=== PATIENT | male | born 1960 | race African-American/Black ===

== ENCOUNTER 2017-11-06 11:39 | Inpatient (IN) | payer OTHER ==
[~2017-11-06] VITALS: Ht 182.9 cm; Wt 100.0 kg
[2017-11-06] VITALS (12 sets, daily range): BP systolic 108–139; BP diastolic 54–79; PULSE 54–100; RESP 12–24; TEMP 97.6–98.2; O2SAT 97–100
[~2017-11-06 11:39] MED LIST: ASPI81TA11 PO; BISA5TAB5 PO; CHOL50006 PO; CLOP75TA PO; CRES20TA PO; CYCL1PAK PO; EMPA1TAB3 PO; ERGO50000 PO; GABA300C3 PO; GLIP10TA6 PO; HYDR-3129 PO; INSU1INJ14 SQ; LOSA25 PO; METO25 PO; NOVOINJ3 SQ; TRAD5TAB PO; VITA100020 PO
[2017-11-06] MEDS ORDERED: PANTOPRAZOLE SODIUM 40 MG VIAL IV PUSH ONE (12:00)
[2017-11-06] MEDS ORDERED: SODIUM CHLORIDE 0.9% FLUSH 10 ML FLUSH IVF PRN (12:00)
--- NOTE | 2017-11-06 12:40 | RADRPT ---
EXAM DATE: 11/06/2017 12:29 PM EDT AGE/SEX: 57 years / Male INDICATIONS: Chest pain. CLINICAL DATA: This is the patient's initial encounter. Patient reports that signs and symptoms have been present for 1 day and indicates a pain score of 6/10. MEDICAL/SURGICAL HISTORY: None. None. COMPARISON: No prior exams available for comparison. FINDINGS: A single AP view of the chest demonstrates the lungs to be symmetrically aerated without evidence of mass, infiltrate or effusion. The cardiomediastinal contours are unremarkable. Osseous structures a re intact. CONCLUSION: Negative for an acute process Electronically signed by: Taj Khalil MD 11/06/2017 12:38 PM EDT
--- NOTE | 2017-11-06 13:46 | PD ---
Physical Exam Narrative I, Dr. Cobb, have reviewed the advance practice practitioner's documentation and am in agreement, met with the patient face to face, made the diagnosis, and the medical decision making was done by me. *My assessment and Findings: See mid-level provider note for full history and physical and disposition. Patient presents to the emergency department complaining of chest pain that started last night. Pain is described as being diffuse and he is without pain now. Is also reporting bloody stools that started on Monday morning. As well as nausea but no vomiting, chills but no fever, and diarrhea. Patient placed on the alarm security or surveillance monitor, IV access obtained , and labs/EKG/chest x-ray/CT ordered. He was also given IV Protonix. Data Data Last Documented VS Vital Signs Date Time Temp Pulse Resp B/P (MAP) Pulse Ox O2 Delivery O2 Flow Rate FiO2 11/06/17 12:45 97 Room Air 11/06/17 11:50 97.6 92 24 108/54 (72) Orders Orders Electrocardiogram (11/06/17 11:57) Ckmb (Isoenzyme) Profile (11/06/17 11:57) Complete Blood Count With Diff (11/06/17 11:57) Comprehensive Metabolic Panel (11/06/17 11:57) Magnesium (Mg) (11/06/17 11:57) Prothrombin Time / Inr (Pt) (11/06/17 11:57) Act Partial Throm Time (Ptt) (11/06/17 11:57) Troponin I (11/06/17 11:57) Lipase (11/06/17 11:57) Chest, Single Ap (11/06/17 11:57) Ecg Monitoring (11/06/17 11:57) Bilateral Bp Monitoring (11/06/17 11:57) Iv Access Insert/Monitor (11/06/17 11:57) Oximetry (11/06/17 11:57) Oxygen Administration (11/06/17 11:57) Sodium Chloride 0.9% Flush (Ns Flush) (11/06/17 12:00) Pantoprazole Inj (Protonix Inj) (11/06/17 12:00) Type And Screen (11/06/17 12:19) Sodium Chlor 0.9% 1000 Ml Inj (Ns 1000 M (11/06/17 14:00) Pantoprazole Inj (Protonix Inj) (11/06/17 14:00) Red Blood Cells (Rbc) (11/06/17 14:13) Blood Product Administration (11/06/17 14:13) Sodium Chlor 0.9% 250 Ml Inj (Ns 250 Ml (11/06/17 14:15) Morphine Inj (Morphine Inj) (11/06/17 14:30) Metoclopramide Inj (Reglan Inj) (11/06/17 14:30) Ct Abd/Pel W/O Iv Contrast (11/06/17 ) Calcium Gluconate Inj (Calcium Gluconate (11/06/17 14:30) Insulin Human Regular Inj (Novolin R Inj (11/06/17 14:30) Dextrose 50% In Marcel (Vial) Inj (D50w (Vi (11/06/17 14:30) Albuterol Concentrated Neb (Albuterol Co (11/06/17 14:30) Admit To Inpatient (11/06/17 ) Code Status (11/06/17 15:15) Vital Signs (Adult) LYNN.QSHIFT (11/06/17 15:15) Intake + Output LYNN.QSHIFT (11/06/17 15:15) Sodium Chloride 0.9% Flush (Ns Flush) (11/06/17 15:15) Sodium Chloride 0.9% Flush (Ns Flush) (11/06/17 21:00) Pantoprazole Inj (Protonix Inj) (11/07/17 09:00) Hgb & Hct (11/06/17 15:15) Hgb & Hct (11/06/17 21:15) Hgb & Hct (11/07/17 03:15) Hgb & Hct (11/07/17 09:15) Hgb & Hct (11/07/17 15:15) Hgb & Hct (11/07/17 21:15) Hgb & Hct (11/08/17 03:15) Hgb & Hct (11/08/17 09:15) Hgb & Hct (11/08/17 15:15) Hgb & Hct (11/08/17 21:15) Basic Metabolic Panel (Bmp) (11/07/17 06:00) Electrocardiogram (11/06/17 ) Sliver Cutter / Telemetry LYNN.Q8H (11/06/17 15:15) Scd Bilateral/Knee High LYNN.BID (11/06/17 15:15) Inpatient Certification (11/06/17 ) Sodium Chlor 0.45% 1000 Ml Inj (1/2 Ns 1 (11/06/17 15:15) Activity Oob With Assistance (11/06/17 15:15) ^Bedside Commode (11/06/17 15:15) Admit Order (Ed Use Only) (11/06/17 15:20) Insulin Aspart Supplemtl Scale (Novolog (11/06/17 17:00) Ondansetron Odt (Zofran Odt) (11/06/17 15:15) Labs Laboratory Tests Test 11/06/17 13:52 White Blood Count 4.8 TH/MM3 Red Blood Count 2.68 MIL/MM3 Hemoglobin 6.2 GM/DL Hematocrit 19.6 % Mean Corpuscular Volume 73.2 FL Mean Corpuscular Hemoglobin 23.2 PG Mean Corpuscular Hemoglobin Concent 31.7 % Red Cell Distribution Width 19.5 % Platelet Count 192 TH/MM3 Mean Platelet Volume 7.9 FL Neutrophils (%) (Auto) 66.7 % Lymphocytes (%) (Auto) 17.6 % Monocytes (%) (Auto) 12.3 % Eosinophils (%) (Auto) 2.7 % Basophils (%) (Auto) 0.7 % Neutrophils # (Auto) 3.2 TH/MM3 Lymphocytes # (Auto) 0.8 TH/MM3 Monocytes # (Auto) 0.6 TH/MM3 Eosinophils # (Auto) 0.1 TH/MM3 Basophils # (Auto) 0.0 TH/MM3 CBC Comment DIFF FINAL Differential Comment Prothrombin Time 9.7 SEC Prothromb Time International Ratio 1.0 RATIO Activated Partial Thromboplast Time 20.4 SEC Blood Urea Nitrogen 47 MG/DL Creatinine 2.44 MG/DL Random Glucose 198 MG/DL Total Protein 6.1 GM/DL Albumin 3.1 GM/DL Calcium Level 8.0 MG/DL Magnesium Level 2.3 MG/DL Alkaline Phosphatase 66 U/L Aspartate Amino Transf (AST/SGOT) 13 U/L Alanine Aminotransferase (ALT/SGPT) 17 U/L Total Bilirubin 0.2 MG/DL Sodium Level 138 MEQ/L Potassium Level 6.6 MEQ/L Chloride Level 110 MEQ/L Carbon Dioxide Level 19.2 MEQ/L Anion Gap 9 MEQ/L Estimat Glomerular Filtration Rate 33 ML/MIN Total Creatine Kinase 82 U/L Troponin I LESS THAN 0.02 NG/ML Lipase 256 U/L [facility] Supervised Visit with ROGERIO: Yes Interpretation(s) ECG: Sinus rhythm, rate 98, no ST elevation or depression Labs: Low hemoglobin and hematocrit, elevated potassium/creatinine/BUN/glucose Last Impressions Chest X-Ray 11/06/17 1157 Signed Impressions: CONCLUSION: Negative for an acute process Narrative Course Patient was given Protonix in the ER as well as 2 units of blood for transfusion. He was also given 1 L IV normal saline and hyperkalemia was treated with 1 g of calcium gluconate, 10 mg albuterol neb, and I am of D50 and 10 units of regular insulin IV. He was admitted to the hospital for further evaluation and management. Diagnosis Primary Impression: Hyperkalemia Additional Impressions: [id number] kidney injury Qualified Codes: N17.9 - Acute kidney failure, unspecified; N18.3 - Chronic kidney disease, stage 3 (moderate) Chest pain Qualified Codes: R07.9 - Chest pain, unspecified Symptomatic anemia GI bleed Qualified Codes: K92.2 - Gastrointestinal hemorrhage, unspecified Admitting Information Admitting Physician Requests: Admit Condition: Stable Henrietta Cobb MD Nov 06, 2017 13:46
[2017-11-06 13:59] LABS: ALBUMIN 3.1 GM/DL (3.4-5.0); ALKALINE PHOSPHATASE 66 U/L (45-117); ALT (GPT) 17 U/L (12-78); AST (GOT) 13 U/L (15-37); BICARBONATE 19.2 MEQ/L (21.0-32.0); BLOOD UREA NITROGEN 47 MG/DL (7-18); CHLORIDE 110 MEQ/L (98-107); CREATININE 2.44 MG/DL (0.60-1.30); GLOMERULAR FILTRATION RATE 33 ML/MIN (>89); GLUCOSE,RANDOM 198 MG/DL (74-106); MAGNESIUM 2.3 MG/DL (1.5-2.5); SODIUM (NA) 138 MEQ/L (136-145); TOTAL BILIRUBIN ADULT 0.2 MG/DL (0.2-1.0); TOTAL PROTEIN 6.1 GM/DL (6.4-8.2); TROPONIN I LESS THAN 0.02 NG/ML (0.02-0.05)
[2017-11-06] MEDS ORDERED: PANTOPRAZOLE INJ 80 MG in SODIUM CHLORIDE 0.9% INJ 100 ML IV SCH ×2 (14:00→15:30)
[2017-11-06] MEDS ORDERED: SODIUM CHLOR 0.9% 1000 ML INJ 1,000 ML IV ONE (14:00)
--- NOTE | 2017-11-06 14:00 | PD ---
HPI Chief Complaint: Chest Pain Time Seen by Provider: 11:57 Travel History International Travel<30 days: No Contact w/Intl Traveler<30days: No Traveled to known affect area: No History of Present Illness HPI 57-year-old male that presents to the ED for evaluation of mid chest pain as well as nausea and weakness as well as rectal bleeding. Per patient he has had bowel movements with blood for the past 2 days. Per patient has been feeling weak and having the chest pain for the past 2 days as well but the chest pain does become more severe yesterday. He states that he had a colonoscopy 2 weeks ago. Per patient he was told that he had some internal hemorrhoids as well as some polyps but was told that otherwise he was okay. She has never had the bleeding before. He states that he had a colonoscopy just as a routine test. Patient denies any abdominal pain. States that whenever he has the stool is just liquid with blood. He states that for the most part he feels weak and tired. Chest pain is 7 out of 10 and feels like a pressure. Does not radiate. States in the mid chest. No history of ulcers. Has never had an EGD. No urinary issues. No fevers chills or sweats. No cough or runny nose. No history of asthma or COPD. He does have a history of CABG in the past as well as hypertension and cholesterol issues and diabetes. PFSH Past Medical History Hx Anticoagulant Therapy: Yes Asthma: Yes ( CHILD) Autoimmune Disease: No Heart Rhythm Problems: No Cancer: No Cardiac Catheterization: Yes Cardiovascular Problems: Yes High Cholesterol: Yes Chemotherapy: No Chest Pain: Yes Congestive Heart Failure: No COPD: No Coronary Artery Disease: Yes Diabetes: Yes Patient Takes Glucophage: No (glipide) Diminished Hearing: No Endocrine: Yes Gastrointestinal Disorders: Yes (RECTAL CYST) GERD: No Glaucoma: No Genitourinary: No Hepatitis: No Hiatal Hernia: No Hypertension: Yes Immune Disorder: No Musculoskeletal: Yes (undiagnosed back problems) Neurologic: Yes Psychiatric: No Reproductive: No Respiratory: No Integumentary: Yes Migraines: Yes Myocardial Infarction: No Radiation Therapy: No Sleep Apnea: No Thyroid Disease: No Ulcer: No Past Surgical History Cardiac Surgery: Yes (OPEN HEART 2008) Cholecystectomy: Yes Coronary Artery Bypass Graft: Yes (SIX VESSELS) Oral Surgery: Yes Thoracic Surgery: Yes (STERNUM REMOVAL) Other Surgery: Yes (GALLBLADDER- 2004) Family History Family Myocardial Infarction: No Social History Alcohol Use: Yes (WEEKLY) Tobacco Use: No (FORMER SMOKER) Substance Use: No Allergies-Medications (Allergen,Severity, Reaction): Uncoded Allergies: MERTHIALATE (Allergy, Intermediate, UNKNOWN, 06/08/11) Reported Meds & Prescriptions Reported Meds & Active Scripts Active Losartan Potassium 25 MG (Losartan Potassium) 25 Mg Tab 25 Mg PO DAILY Crestor (Rosuvastatin Calcium) 20 Mg Tab 20 Mg PO DAILY Reported Gabapentin 300 Mg Cap 300 Mg PO BID Vitamin D / Drisdol 50,000 Units (Ergocalciferol) 50,000 Units Cap 1 Cap PO Q7D Vitamin D (Cholecalciferol) 5,000 Unit Tab 5,000 Unit PO DAILY Vitamin B-12 (Cyanocobalamin) 1,000 Mcg Tab 1,000 Mcg PO DAILY Tresiba Flextouch (Insulin Degludec) 100 Unit/Ml Inj 21 SQ HS Tradjenta (Linagliptin) 5 Mg Tab 5 Mg PO DAILY [place] 10-325 mg (Hydrocodone-Acetaminophen 10-325 mg) 1 Tab 1 Tab PO Q12HR PRN Clopidogrel (Clopidogrel Bisulfate) 75 Mg Tab 75 Mg PO DAILY Cyclobenzaprine HCl 10 Mg Tab 10 Mg PO BID Jardiance (Empagliflozin) 25 Mg Tab 25 Mg PO DAILY Novolog Flexpen (Insulin Aspart) Flexpen Inj 20 SQ TID Glipizide 10 Mg Tab 10 Mg PO BID TAKE BEFORE MEALS Dulcolax (Bisacodyl) 5 Mg Tabec 5 Mg PO ONCE Aspirin EC 81 mg (Aspirin) 81 Mg Tab 81 Mg PO DAILY Metoprolol Tartrate 25 mg (Metoprolol Tartrate) 25 Mg Tab 1 Tab PO DAILY Review of Systems Except as stated in HPI: all other systems reviewed are Neg Physical Exam Narrative GENERAL: SKIN: Warm and dry. HEAD: Atraumatic. Normocephalic. EYES: Pupils equal and round. No scleral icterus. No injection or drainage. ENT: No nasal bleeding or discharge. Mucous membranes pink and moist. Tongue is midline. No uvula deviation. NECK: Trachea midline. No JVD. CARDIOVASCULAR: Regular rate and rhythm. No murmurs, S3, S4. RESPIRATORY: No accessory muscle use. Clear to auscultation. Breath sounds equal bilaterally. GASTROINTESTINAL: Abdomen soft, non-tender, nondistended. Hepatic and splenic margins not palpable. Rectal exam: done with female nurse present show what appears to be rectal bleeding. Some mild stool noted. Some masses noted on the inside of the rectum but obvious hemorrhoids noted on the external area. MUSCULOSKELETAL: Extremities without clubbing, cyanosis, or edema. No obvious deformities. Full range of motion of the upper and lower extremities bilaterally. 2+ pulses bilaterally. NEUROLOGICAL: Awake and alert. No obvious cranial nerve deficits. Motor grossly within normal limits. Five out of 5 muscle strength in the arms and legs. Normal speech. PSYCHIATRIC: Appropriate mood and affect; insight and judgment normal. Data Data Last Documented VS Vital Signs Date Time Temp Pulse Resp B/P (MAP) Pulse Ox O2 Delivery O2 Flow Rate FiO2 11/06/17 12:45 97 Room Air 11/06/17 11:50 97.6 92 24 108/54 (72) Orders Orders Electrocardiogram (11/06/17 11:57) Ckmb (Isoenzyme) Profile (11/06/17 11:57) Complete Blood Count With Diff (11/06/17 11:57) Comprehensive Metabolic Panel (11/06/17 11:57) Magnesium (Mg) (11/06/17 11:57) Prothrombin Time / Inr (Pt) (11/06/17 11:57) Act Partial Throm Time (Ptt) (11/06/17 11:57) Troponin I (11/06/17 11:57) Lipase (11/06/17 11:57) Chest, Single Ap (11/06/17 11:57) Ecg Monitoring (11/06/17 11:57) Bilateral Bp Monitoring (11/06/17 11:57) Iv Access Insert/Monitor (11/06/17 11:57) Oximetry (11/06/17 11:57) Oxygen Administration (11/06/17 11:57) Sodium Chloride 0.9% Flush (Ns Flush) (11/06/17 12:00) Pantoprazole Inj (Protonix Inj) (11/06/17 12:00) Type And Screen (11/06/17 12:19) Sodium Chlor 0.9% 1000 Ml Inj (Ns 1000 M (11/06/17 14:00) Pantoprazole Inj (Protonix Inj) (11/06/17 14:00) Red Blood Cells (Rbc) (11/06/17 14:13) Blood Product Administration (11/06/17 14:13) Sodium Chlor 0.9% 250 Ml Inj (Ns 250 Ml (11/06/17 14:15) Morphine Inj (Morphine Inj) (11/06/17 14:30) Metoclopramide Inj (Reglan Inj) (11/06/17 14:30) Ct Abd/Pel W/O Iv Contrast (11/06/17 ) Calcium Gluconate Inj (Calcium Gluconate (11/06/17 14:30) Insulin Human Regular Inj (Novolin R Inj (11/06/17 14:30) Dextrose 50% In Marcel (Vial) Inj (D50w (Vi (11/06/17 14:30) Albuterol Concentrated Neb (Albuterol Co (11/06/17 14:30) Admit To Inpatient (11/06/17 ) Code Status (11/06/17 15:15) Vital Signs (Adult) LYNN.QSHIFT (11/06/17 15:15) Intake + Output LYNN.QSHIFT (11/06/17 15:15) Diet Npo (11/06/17 Dinner) Sodium Chloride 0.9% Flush (Ns Flush) (11/06/17 15:15) Sodium Chloride 0.9% Flush (Ns Flush) (11/06/17 21:00) Pantoprazole Inj (Protonix Inj) (11/07/17 09:00) Hgb & Hct (11/06/17 15:15) Hgb & Hct (11/06/17 21:15) Hgb & Hct (11/07/17 03:15) Hgb & Hct (11/07/17 09:15) Hgb & Hct (11/07/17 15:15) Hgb & Hct (11/07/17 21:15) Hgb & Hct (11/08/17 03:15) Hgb & Hct (11/08/17 09:15) Hgb & Hct (11/08/17 15:15) Hgb & Hct (11/08/17 21:15) Basic Metabolic Panel (Bmp) (11/07/17 06:00) Electrocardiogram (11/06/17 ) Spooling Operator / Telemetry LYNN.Q8H (11/06/17 15:15) Scd Bilateral/Knee High LYNN.BID (11/06/17 15:15) Inpatient Certification (11/06/17 ) Sodium Chlor 0.45% 1000 Ml Inj (1/2 Ns 1 (11/06/17 15:15) Activity Oob With Assistance (11/06/17 15:15) ^Bedside Commode (11/06/17 15:15) Admit Order (Ed Use Only) (11/06/17 15:20) Insulin Aspart Supplemtl Scale (Novolog (11/06/17 17:00) Ondansetron Odt (Zofran Odt) (11/06/17 15:15) Pantoprazole Inj (Protonix Inj) (11/06/17 15:30) Labs Laboratory Tests Test 11/06/17 13:52 White Blood Count 4.8 TH/MM3 Red Blood Count 2.68 MIL/MM3 Hemoglobin 6.2 GM/DL Hematocrit 19.6 % Mean Corpuscular Volume 73.2 FL Mean Corpuscular Hemoglobin 23.2 PG Mean Corpuscular Hemoglobin Concent 31.7 % Red Cell Distribution Width 19.5 % Platelet Count 192 TH/MM3 Mean Platelet Volume 7.9 FL Neutrophils (%) (Auto) 66.7 % Lymphocytes (%) (Auto) 17.6 % Monocytes (%) (Auto) 12.3 % Eosinophils (%) (Auto) 2.7 % Basophils (%) (Auto) 0.7 % Neutrophils # (Auto) 3.2 TH/MM3 Lymphocytes # (Auto) 0.8 TH/MM3 Monocytes # (Auto) 0.6 TH/MM3 Eosinophils # (Auto) 0.1 TH/MM3 Basophils # (Auto) 0.0 TH/MM3 CBC Comment DIFF FINAL Differential Comment Prothrombin Time 9.7 SEC Prothromb Time International Ratio 1.0 RATIO Activated Partial Thromboplast Time 20.4 SEC Blood Urea Nitrogen 47 MG/DL Creatinine 2.44 MG/DL Random Glucose 198 MG/DL Total Protein 6.1 GM/DL Albumin 3.1 GM/DL Calcium Level 8.0 MG/DL Magnesium Level 2.3 MG/DL Alkaline Phosphatase 66 U/L Aspartate Amino Transf (AST/SGOT) 13 U/L Alanine Aminotransferase (ALT/SGPT) 17 U/L Total Bilirubin 0.2 MG/DL Sodium Level 138 MEQ/L Potassium Level 6.6 MEQ/L Chloride Level 110 MEQ/L Carbon Dioxide Level 19.2 MEQ/L Anion Gap 9 MEQ/L Estimat Glomerular Filtration Rate 33 ML/MIN Total Creatine Kinase 82 U/L Troponin I LESS THAN 0.02 NG/ML Lipase 256 U/L MDM Medical Decision Making Medical Screen Exam Complete: Yes Emergency Medical Condition: Yes Medical Record Reviewed: Yes Interpretation(s) CBC & BMP Diagram 11/06/17 13:52 Total Protein 6.1 L, Albumin 3.1 L, Calcium Level 8.0 L, Magnesium Level 2.3, Alkaline Phosphatase 66, Aspartate Amino Transf (AST/SGOT) 13 L, Alanine Aminotransferase (ALT/SGPT) 17, Total Bilirubin 0.2 Last Impressions Chest X-Ray 11/06/17 1157 Signed Impressions: CONCLUSION: Negative for an acute process troponin and CKMB WNL EKG shows sinus rhythm with no sign of acute ischemia or arrhythmia. More specifically no sign of Peak T waves. Differential Diagnosis Rectal bleeding versus GI bleed versus CAD versus chest pain versus bleeding Narrative Course 57-year-old male that presents to the ED for evaluation of bleeding. Patient was properly examined and was found to have signs and symptoms of possible GI bleed. Labs and imaging order. Patient also complains of chest pain. Cardiac workup started as well. Patient was not given aspirin because of possible GI bleed. Patient does take Plavix but has not taken it since yesterday. Labs and imaging order. Patient was started on Protonix. Labs and imaging showed what appears to be abnormal hemoglobin, hyperkalemia as well as acute kidney injury. Patient's started on albuterol, calcium, and insulin with D50 as per my attending's Dr Cobb recommendations. No EKG abnormalities noted. Chest pain and weakness likely secondary to acute bleeding and GI bleed. Case discussed with Dr. Alcaraz for [facility] who agrees to admission. I spoke over the phone with Dr. Nair who will evaluate the patient while admitted. HemaPrompt Point of Care Internal Pos. & Neg. Controls: Passed Fecal Specimen Occult Blood: Positive Diagnosis Primary Impression: GI bleed Qualified Codes: K92.2 - Gastrointestinal hemorrhage, unspecified Additional Impressions: Symptomatic anemia [id number] kidney injury Qualified Codes: N17.9 - Acute kidney failure, unspecified; N18.9 - Chronic kidney disease, unspecified Hyperkalemia Chest pain Qualified Codes: R07.9 - Chest pain, unspecified Admitting Information Admitting Physician Requests: Admit Giuseppe Thompson Nov 06, 2017 13:59
[2017-11-06 14:06] LABS: AUTOMATED NEUTROPHIL # 3.2 TH/MM3 (1.8-7.7); BASOPHIL % 0.7 % (0.0-2.0); EOSINOPHIL # 0.1 TH/MM3 (0-0.4); EOSINOPHIL % 2.7 % (0.0-4.0); LYMPH % 17.6 % (9.0-44.0); LYMPHOCYTE # 0.8 TH/MM3 (1.0-4.8); MEAN CELL VOLUME 73.2 FL (80.0-100.0); MEAN CORPUSCULAR HEMOGLOBIN 23.2 PG (27.0-34.0); MEAN CORPUSCULAR HGB CONC 31.7 % (32.0-36.0); MEAN PLATELET VOLUME 7.9 FL (7.0-11.0); MONO % 12.3 % (0.0-8.0); MONOCYTE # 0.6 TH/MM3 (0-0.9); NEUT % 66.7 % (16.0-70.0); PLATELET COUNT 192 TH/MM3 (150-450); RED BLOOD COUNT 2.68 MIL/MM3 (4.50-5.90); RED CELL DISTRIBUTION WIDTH 19.5 % (11.6-17.2); WHITE BLOOD COUNT 4.8 TH/MM3 (4.0-11.0)
[2017-11-06 14:14] LABS: HEMATOCRIT 19.6 % (39.0-51.0); HEMOGLOBIN 6.2 GM/DL (13.0-17.0)
[2017-11-06] MEDS ORDERED: SODIUM CHLOR 0.9% 250 ML INJ 250 ML IV ONE (14:15)
[2017-11-06 14:24] LABS: PROTHROMBIN TIME - PATIENT 9.7 SEC (9.8-11.6)
[2017-11-06] MEDS ORDERED: RESP: ALBUTEROL CONC 2.5 MG/0.5 ML NEB INH ONE (14:30)
[2017-11-06] MEDS ORDERED: METOCLOPRAMIDE HCL 10 MG/2 ML VIAL IV PUSH ONE (14:30)
[2017-11-06] MEDS ORDERED: INSULIN HUMAN REGULAR 1,000 UNITS/10 ML VIAL IV PUSH ONE (14:30)
[2017-11-06] MEDS ORDERED: CALCIUM GLUCONATE 10% 1 GM/10 ML VIAL SLOW IVP ONE (14:30)
[2017-11-06] MEDS ORDERED: DEXTROSE 50% IN WATER 50 ML VIAL(D50) IV PUSH ONE (14:30)
[2017-11-06] MEDS ORDERED: MORPHINE SULFATE 4 MG/ML INJ IV PUSH ONE (14:30)
[2017-11-06] MEDS ORDERED: SODIUM CHLORIDE 0.9% FLUSH 10 ML FLUSH IV FLUSH PRN (15:15)
[2017-11-06] MEDS ORDERED: ONDANSETRON ODT 4 MG TAB PO PRN (15:15)
--- NOTE | 2017-11-06 15:18 | PD.CONS ---
HPI History of Present Illness This is a 57 year old M with PMH significant for CKD, DM, PAD S/P LLE revascularization, CAD, HTN, and hyperlipidemia who presented to the ER today with complaints of weakness, feeling light headed, and dizziness. Pt reports rectal bleeding for the past two days, states stools are liquids and black and dark maroon in color. Multiple episodes yesterday, only one episode so far today. Associated LUQ abdominal pain, intermittent, described as a burning sensation. Denies any noticeable aggravating or alleviating factors. Also reports some nausea since Monday but denies emesis. Denies acid reflux, heartburn. Of note, pt is on Plavix but has not had any since Monday because he needs his prescription refilled. Also takes a daily baby ASA. Pt denies NSAID use. Drinks a few beers every other days. has never had EGD. Recent colonoscopy done by our service outpatient on October 23 --> Two semi- pedunculated polyps ranging from 7-12 mm in size were found in the ascending colon and proximal transverse colon, polypectomy using snare cautery. Colon mucosa was otherwise normal. Internal hemorrhoids. Pathology revealed polyps were tubular adenomas. Pt was advised to repeat procedure in one year. Pt denies any family history significant for colon cancer. (Nanette Burciaga) PFSH Past Medical History CKD DM PAD S/P LLE revascularization CAD HTN Hyperlipidemia Colon polyps- tubular adenoma Vitamin D deficiency Vitamin B12 deficiency Lung cancer S/O chemo and radiation in 2007 CAD S/P CABG in 2008 Past Surgical History Cholecystectomy Removal of sternum due to MRSA Colonoscopy Toe amputation (Nanette Burciaga) Uncoded Allergies: MERTHIALATE (Allergy, Intermediate, UNKNOWN, 06/08/11) Social History ETOH- a few beers every other day (Nanette Burciaga) Review of Systems Gastrointestinal: COMPLAINS OF: Abdominal pain, Black stools, Bloody stools, Diarrhea, Nausea, DENIES: Constipation, Vomiting, Difficulty Swallowing, Anorexia, Odynophagia, Swelling of Abdomen, Heartburn, Hematemesis (Nanette Burciaga) GI Exam Vitals I&O Vital Signs Date Time Temp Pulse Resp B/P (MAP) Pulse Ox O2 Delivery O2 Flow Rate FiO2 11/06/17 12:45 97 Room Air 11/06/17 12:45 97 Room Air 6/18/18 12:45 97 11/06/17 11:50 97.6 92 24 108/54 (87) 100 Imaging Last Impressions Chest X-Ray 11/06/17 1157 Signed Impressions: CONCLUSION: Negative for an acute process Laboratory Test 11/06/17 13:52 White Blood Count 4.8 TH/MM3 Red Blood Count 2.68 MIL/MM3 Hemoglobin 6.2 GM/DL Hematocrit 19.6 % Mean Corpuscular Volume 73.2 FL Mean Corpuscular Hemoglobin 23.2 PG Mean Corpuscular Hemoglobin Concent 31.7 % Red Cell Distribution Width 19.5 % Platelet Count 192 TH/MM3 Mean Platelet Volume 7.9 FL Neutrophils (%) (Auto) 66.7 % Lymphocytes (%) (Auto) 17.6 % Monocytes (%) (Auto) 12.3 % Eosinophils (%) (Auto) 2.7 % Basophils (%) (Auto) 0.7 % Neutrophils # (Auto) 3.2 TH/MM3 Lymphocytes # (Auto) 0.8 TH/MM3 Monocytes # (Auto) 0.6 TH/MM3 Eosinophils # (Auto) 0.1 TH/MM3 Basophils # (Auto) 0.0 TH/MM3 CBC Comment DIFF FINAL Differential Comment Prothrombin Time 9.7 SEC Prothromb Time International Ratio 1.0 RATIO Activated Partial Thromboplast Time 20.4 SEC Blood Urea Nitrogen 47 MG/DL Creatinine 2.44 MG/DL Random Glucose 198 MG/DL Total Protein 6.1 GM/DL Albumin 3.1 GM/DL Calcium Level 8.0 MG/DL Magnesium Level 2.3 MG/DL Alkaline Phosphatase 66 U/L Aspartate Amino Transf (AST/SGOT) 13 U/L Alanine Aminotransferase (ALT/SGPT) 17 U/L Total Bilirubin 0.2 MG/DL Sodium Level 138 MEQ/L Potassium Level 6.6 MEQ/L Chloride Level 110 MEQ/L Carbon Dioxide Level 19.2 MEQ/L Anion Gap 9 MEQ/L Estimat Glomerular Filtration Rate 33 ML/MIN Total Creatine Kinase 82 U/L Troponin I LESS THAN 0.02 NG/ML Lipase 256 U/L Physical Examination HEENT: Normocephalic; atraumatic CHEST: Even/unlabored CARDIAC: RRR ABDOMEN: Soft, nondistended, LUQ tenderness, bowel sounds active EXTREMITIES: No clubbing, cyanosis, or edema. SKIN: Normal; no rash; no jaundice. HISTOLOGY MANAGER: Alert and oriented times three. (Nanette Burciaga) Assessment and Plan Plan Assessment: - Rectal bleeding with severe anemia- H/H 6.2/19.6 on admission Reports of maroon and black colored stools since Monday, multiple episodes yesterday, only one episode of stool so far today. Associated LUQ pain and tenderness. Reports of nausea, denies emesis. Recent colonoscopy (October 23) --> Two semi-pedunculated polyps ranging from 7-12 mm in size were found in the ascending colon and proximal transverse colon, polypectomy using snare cautery. Colon mucosa was otherwise normal. Internal hemorrhoids. Pathology revealed polyps were tubular adenomas. Has never had EGD Of note, on Plavix, has not had any since Monday because Rx ran out. Also on daily baby ASA Reports a few beers, every other day. Denies NSAIDs - VIPIN on CKD with hyperkalemia- Pt has seen nephrology in the past- not on dialysis Plan: EGD and colonoscopy tomorrow Obtain consent Clear liquids today Golytely prep NPO after MN Potassium correction per attending Monitor H/H 4 U PRBCs ordered Protonix gtt Further recommendations based on clinical course and results of above Pt has been seen and examined by myself and Dr. Nair and this note is written on his behalf (Nanette Burciaga) Physician Comments seen and examined with GERARDO, egd/colonoscopy planned. Correct hyperkalemia. Transfuse as needed to keep HB > 8.0. IV protonix. Monitor labs. Bleeding sacn if active bleeding tonight. Discussed with pt. and family at the bedside. Thank you (Cosme Nair MD) Nanette Burciaga Nov 06, 2017 15:18 oCsme Nair MD Nov 06, 2017 16:34
[2017-11-06] MEDS ORDERED: INSU1INJ14 SQ (15:35)
[2017-11-06] MEDS ORDERED: TRAD5TAB PO (15:35)
[2017-11-06] MEDS ORDERED: METO25TA3 PO (15:35)
[2017-11-06] MEDS ORDERED: PLAV75TA29 PO (15:39)
[2017-11-06] MEDS ORDERED: NOVOINJ3 SQ (15:39)
[2017-11-06] MEDS ORDERED: EMPA1TAB3 PO (15:39)
[2017-11-06] MEDS ORDERED: GABA300C5 PO (15:39)
[2017-11-06] MEDS ORDERED: DULC5TAB PO (15:39)
[2017-11-06] MEDS ORDERED: HYDR-3366 PO (15:39)
[2017-11-06] MEDS ORDERED: ASPI-516 CHEW (15:39)
[2017-11-06] MEDS ORDERED: ROSU20 PO (15:39)
[2017-11-06] MEDS ORDERED: VITA500012 PO (15:39)
[2017-11-06] MEDS ORDERED: GLIP10TA6 PO (15:39)
[2017-11-06] MEDS ORDERED: DEXTROSE 50% IN WATER 50 ML VIAL(D50) IV PUSH PRN (16:00)
[2017-11-06] MEDS ORDERED: PEG (High)/E-LYTE SOLN 4000 ML BTL PO ONE (16:00)
[2017-11-06] MEDS ORDERED: GLUCAGON 1 MG/ML VIAL OTHER PRN (16:00)
--- NOTE | 2017-11-06 16:17 | HHI.HP ---
HPI Service [facility] Hospitalists Primary Care Physician Ananda Ledezma MD Admission Diagnosis acute GI bleed, hyperkalemia, VIPIN, chest pain Chief Complaint: Rectal bleeding, weakness Travel History International Travel<30 Days: No Contact w/Intl Traveler <30 Da: No Traveled to Known Affected Are: No History of Present Illness Mr. Oneill is a 57 y/o male with CKD stage 3, DM, PAD S/P LLE revascularization, CAD, HTN, and hyperlipidemia who presented to the ED on 11/06/17 with complaints of weakness, lightheadedness, and dizziness that began today. Pt reported that he has been having liquid black and dark maroon in color stools for the last 2 days. He had multiple episodes yesterday, only one episode so far today. Pt reports associated LUQ abdominal pain, intermittently and some nausea for the last 2-3 days. He also reported some chest pain with exertion and at rest on the left side of the chest which had been continuous since yesterday. He had some associated SOB increased dizziness and lightheadedness today. He denies any vomiting or acid reflux. Pt had a recent outpt colonoscopy on 10/23/[address] Marsh which revealed two semi-pedunculated polyps ranging from 7-12 mm in size which were found in the ascending colon and proximal transverse colon, polypectomy was performed using snare cautery, and internal hemorrhoids. Pathology revealed the polyps were tubular adenomas. Pt is normally on Plavix and ASA but has not taken the Plavix since Monday because he needs his prescription refilled. Pt denies NSAID use. His labs at admission noted a significant drop in his H/H to 6.2/19.6. His BMP revealed Cr 2.44/BUN 47, GFR 33 , K+ 6.6. Cardiac enzymes are negative. CT Abd/pelvis is pending. Review of Systems Constitutional: COMPLAINS OF: Fatigue, Dizziness, DENIES: Diaphoretic episodes Respiratory: COMPLAINS OF: Shortness of breath Cardiovascular: COMPLAINS OF: Chest pain Gastrointestinal: COMPLAINS OF: Abdominal pain, Black stools, Bloody stools, Diarrhea, Nausea, Reflux, DENIES: Vomiting Past Family Social History Past Medical History CKD, stage 3, baseline Cr between 2-2.3, GFR between 34-41 Diabetes mellitus, type 2, poorly controlled with Hgb A1C 12.1% in 05/2017 PAD S/P LLE revascularization CAD S/P CABG x 6 in 2008 Hx of MRSA mediastinitis s/p bypass surgery HTN GERD Hyperlipidemia Colon polyps- tubular adenoma Vitamin D deficiency Vitamin B12 deficiency Past Surgical History Cholecystectomy CABG x 6 on 12/03/[address] Hoskins Several surgeries related to MRSA mediastinitis including I&Ds, wound vac, chest tube placement and removal and plastics closure with bilateral pectoralis major and bilateral rectus abdominis muscle flaps Colonoscopy Left hallux amputation in 2015 LLE revascularization in 2016 Reported Medications -Aspirin 81 Mg CHEW DAILY -Plavix 75 Mg PO DAILY -Crestor 20 Mg PO DAILY -Gabapentin 300 Mg PO TID -Glipizide 10 Mg PO BIDAC -Culdesac 10-325 Mg Tab 1 Tab PO Q4H PRN -Metoprolol Tartrate 25 Mg PO DAILY Ergocalciferol 50,000 Units PO Q7D Dulcolax DR (Bisacodyl) 5 Mg Tabdr 5 Mg PO DAILY PRN --Novolog Flexpen Inj 300 Unit/3 Ml Pen 20 Units SQ TID --Tresiba Flextouch Pen Inj 50 Units HS --Tanzeum 30Mg SQ Weekly ?Losartan 25Mg PO BID ?HCTZ 12.5Mg PO DAILY Tradjenta (Linagliptin) 5 Mg Tab 5 Mg PO DAILY - stopped in 09/2017 Jardiance (Empagliflozin) 25 Mg Tab 25 Mg PO DAILY - stopped 09/2017 Allergies: Uncoded Allergies: MERTHIALATE (Allergy, Intermediate, UNKNOWN, 06/08/11) Family History Noncontributory Social History Drinks about 2-3 beers every other day Former smoker, smoked from age [age], smoked about 2-3 cigarettes per day Denies any illicit drug use 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 SKIN: No rashes, ecchymoses or lesions. Cool and dry. HEENT: Atraumatic. Normocephalic. No temporal or scalp tenderness. No scleral icterus. Airway patent. NECK: Trachea midline, supple, nontender. CARDIO: Regular. RESP: CTA bilaterally. No wheezes, rales, or rhonchi. ABD: +BS, soft, LUQ tenderness, nondistended. EXT: Extremities without clubbing, cyanosis, or edema. NEURO: Awake and alert. Motor and sensory grossly within normal limits. Normal speech. Laboratory Laboratory Tests Test 11/06/17 13:52 White Blood Count 4.8 Red Blood Count 2.68 Hemoglobin 6.2 Hematocrit 19.6 Mean Corpuscular Volume 73.2 Mean Corpuscular Hemoglobin 23.2 Mean Corpuscular Hemoglobin Concent 31.7 Red Cell Distribution Width 19.5 Platelet Count 192 Mean Platelet Volume 7.9 Neutrophils (%) (Auto) 66.7 Lymphocytes (%) (Auto) 17.6 Monocytes (%) (Auto) 12.3 Eosinophils (%) (Auto) 2.7 Basophils (%) (Auto) 0.7 Neutrophils # (Auto) 3.2 Lymphocytes # (Auto) 0.8 Monocytes # (Auto) 0.6 Eosinophils # (Auto) 0.1 Basophils # (Auto) 0.0 CBC Comment DIFF FINAL Differential Comment Prothrombin Time 9.7 Prothromb Time International Ratio 1.0 Activated Partial Thromboplast Time 20.4 Blood Urea Nitrogen 47 Creatinine 2.44 Random Glucose 198 Total Protein 6.1 Albumin 3.1 Calcium Level 8.0 Magnesium Level 2.3 Alkaline Phosphatase 66 Aspartate Amino Transf (AST/SGOT) 13 Alanine Aminotransferase (ALT/SGPT) 17 Total Bilirubin 0.2 Sodium Level 138 Potassium Level 6.6 Chloride Level 110 Carbon Dioxide Level 19.2 Anion Gap 9 Estimat Glomerular Filtration Rate 33 Total Creatine Kinase 82 Troponin I LESS THAN 0.02 Lipase 256 Result Diagram: 11/06/17 1352 11/06/17 1352 Imaging Last Impressions Chest X-Ray 11/06/17 1157 Signed Impressions: CONCLUSION: Negative for an acute process Caprini VTE Risk Assessment Caprini VTE Risk Assessment: Mod/High Risk (score >= 2) Caprini Risk Assessment Model Point Value = 1 Point Value = 2 Point Value = 3 Point Value = 5 Age 41-60 Minor surgery BMI > 25 kg/m2 Swollen legs Varicose veins or History of unexplained or recurrent spontaneous Oral contraceptives or hormone replacement Sepsis (< 1 month) Serious lung disease, including pneumonia (< 1 month) Abnormal pulmonary function Acute myocardial infarction Congestive heart failure (< 1 month) History of inflammatory bowel disease Medical patient at bed rest Age 61-74 Arthroscopic surgery Major open surgery (> 45 min) Laparoscopic surgery (> 45 min) Malignancy Confined to bed (> 72 hours) Immobilizing plaster cast Central venous access Age >= 75 History of VTE Family history of VTE Factor V Leiden Prothrombin [id number] Lupus anticoagulant Anticardiolipin antibodies Elevated serum homocysteine Heparin-induced thrombocytopenia Other congenital or acquired thrombophilia Stroke (< 1 month) Elective arthroplasty Hip, pelvis, or leg fracture Acute spinal cord injury (< 1 month) Prophylaxis Regimen Total Risk Factor Score Risk Level Prophylaxis Regimen 0-1 Low Early ambulation 2 Moderate Order ONE of the following: *Sequential Compression Device (SCD) *Heparin 5000 units SQ BID 3-4 Higher Order ONE of the following medications: *Heparin 5000 units SQ TID *Enoxaparin/Lovenox 40 mg SQ daily (WT < 150 kg, CrCl > 30 mL/min) *Enoxaparin/Lovenox 30 mg SQ daily (WT < 150 kg, CrCl > 10-29 mL/min) *Enoxaparin/Lovenox 30 mg SQ BID (WT < 150 kg, CrCl > 30 mL/min) AND/OR *Sequential Compression Device (SCD) 5 or more Highest Order ONE of the following medications: *Heparin 5000 units SQ TID (Preferred with Epidurals) *Enoxaparin/Lovenox 40 mg SQ daily (WT < 150 kg, CrCl > 30 mL/min) *Enoxaparin/Lovenox 30 mg SQ daily (WT < 150 kg, CrCl > 10-29 mL/min) *Enoxaparin/Lovenox 30 mg SQ BID (WT < 150 kg, CrCl > 30 mL/min) AND *Sequential Compression Device (SCD) Assessment and Plan Problem List: (1) Symptomatic anemia ICD Codes: D64.9 - Anemia, unspecified Status: Acute Plan: Symptomatic Anemia KATRIN Lama Pt is a 57 y/o male with CKD stage 3-4, DM, PAD S/P LLE revascularization, CAD , HTN, and hyperlipidemia who presented to the ED on 11/06/17 with complaints of weakness, lightheadedness, and dizziness that began today. - Pt reported that he has been having liquid black and dark maroon in color stools for the last 2 days. He had multiple episodes yesterday, only one episode so far today. Pt has had some associated LUQ abdominal pain and some nausea for the last 2-3 days. - He had a recent outpt colonoscopy on 10/23/[address] Marsh which revealed two semi-pedunculated polyps ranging from 7-12 mm in size which were found in the ascending colon and proximal transverse colon, polypectomy was performed using snare cautery, and internal hemorrhoids. Pathology revealed the polyps were tubular adenomas. - Pt is normally on Plavix and ASA but has not taken the Plavix in 5 days. Pt denies NSAID use. - His labs at admission noted a significant drop in his H/H to 6.2/19.6. - Pt is being transfused with 2 units of PRBCs and 2 more units of hold - GI is consulted - No previous evaluation with EGD - Pt was started on a Protonix gtt in the ED - CT Abd/pelvis ordered in the ED and is pending. - Give IVF - Liquid diet this evening and NPO after MN - Monitor H/H closely - Supportive care - DVT prophylaxis with SCDs (2) GI bleed ICD Codes: K92.2 - Gastrointestinal hemorrhage, unspecified Status: Acute Plan: - See above (3) Chest pain ICD Codes: R07.9 - Chest pain Status: Acute Plan: - Pt with chest pain today, which may be related to his acute anemia but given his hx of CAD we will trend out his CE and EKGs - Consult Cardiology - Monitor clinical status with the blood transfusions (4) Siawa-yi-ubrqbjz kidney injury ICD Codes: N17.9 - Tprlk-br-rcdwrry kidney injury; N18.9 - Chronic kidney disease, unspecified Status: Acute Plan: Acute on chronic kidney disease, stage 3 Hyperkalemia - His BMP at admission revealed Cr 2.44/BUN 47, GFR 33, K+ 6.6 - Review of outpt records noted baseline Cr between 2-2.3 and GFR 34-41 - Give IVF and Calcium gluconate - Repeat K+ level this evening and in AM - Repeat BMP in AM - Clear liquid diet (5) Hyperkalemia ICD Codes: E87.5 - Hyperkalemia Status: Acute Plan: - See above (6) DM (diabetes mellitus) ICD Codes: E11.9 - DM (diabetes mellitus) Status: Chronic Plan: - Pt follows with Dr. Zelaya as an outpt - His home regimen includes: Novolog Flexpen 20 Units SQ TID, Tresiba Flextouch Pen Inj 50 Units HS, Tanzeum 30Mg SQ Weekly, and Glipizide 10 Mg PO BIDAC - Pt had been on Tradjenta and Jardiance but these were stopped in 09/2017 - NovoLog Medium dose SSI - Accu checks - Pt is on clear liquids for now, monitor blood glucose closely, he may need basal insulin added (7) HTN (hypertension) ICD Codes: I10 - HTN (hypertension) Status: Chronic Plan: - BP in the ED is low - Hole home meds for now - Monitor (8) CAD (coronary artery disease) ICD Codes: I25.10 - CAD (coronary artery disease) Status: Chronic Plan: - Pt with hx of CAD s/p CABG x 6 in 2008 - Pt also with hx of PAD s/p LLE revascularization in 2015 - He was on BB, Crestor, ASA/Plavix - Cont. statin - BB on hold for low BP - ASA/Plavix on hold for GIB Physician Certification 2 Midnight Certification Type: Admission for Inpatient Services Order for Inpatient Services The services are ordered in accordance with Medicare regulations or non- Medicare payer requirements, as applicable. In the case of services not specified as inpatient-only, they are appropriately provided as inpatient services in accordance with the 2-midnight benchmark. Estimated LOS (days): 3 3 days is the estimated time the patient will need to remain in the hospital, assuming treatment plan goals are met and no additional complications. Post-Hospital Plan: Not yet determined Problem Qualifiers (1) GI bleed: Qualified Codes: K92.2 - Gastrointestinal hemorrhage, unspecified (2) Chest pain: Qualified Codes: R07.9 - Chest pain, unspecified (3) Kwiwn-vt-osxvrvp kidney injury: Qualified Codes: N17.9 - Acute kidney failure, unspecified; N18.3 - Chronic kidney disease, stage 3 (moderate) (4) DM (diabetes mellitus): Karime Ji Nov 06, 2017 16:17
--- NOTE | 2017-11-06 16:22 | RADRPT ---
EXAM DATE: 11/06/2017 3:22 PM EDT AGE/SEX: 57 years / Male INDICATIONS: Blood in stool and left lower abdomen pain for two days. CLINICAL DATA: This is the patient's initial encounter. Patient reports that signs and symptoms have been present for 1 day and indicates a pain score of 7/10. MEDICAL/SURGICAL HISTORY: Diabetes. Hypertension. Cholecystectomy. RADIATION DOSE: 8.83 CTDI (mGy) COMPARISON: No prior exams available for comparison. TECHNIQUE: Multiple contiguous axial images were obtained through the abdomen. Images were obtained using multiple row detector helical technique. Using dose reduction techniques, radiation dose was ke pt as low as reasonably achievable to obtain optimal diagnostic quality images. FINDINGS: The lower lungs are clear. There is no pericardial effusion 3.9 cm mass right lobe of the liver. Surgical clips gallbladder fossa Spleen and pancreas unremarkable Adrenal glands appear normal Right and left kidneys are unremarkable. The ascending, transverse and descending colon are remarkable for scattered diverticuli. In the pelvis multiple diverticuli are noted. There is no ascites or adenopathy. Moderate vascular calcifications are noted. CONCLUSION: 1. 3.9 similar mass right lobe of the liver suspicious for primary or secondary neoplasm of the live r. This would be amenable to pancreas biopsy 2. Site of primary is not identified. Electronically signed by: Taj Khalil MD 11/06/2017 4:20 PM EDT
[2017-11-06] MEDS: INSULIN ASPART SUPPLEMENTAL SCALE SQ SCH ×2 (17:00→21:00)
[2017-11-06 22:02] LABS: HEMATOCRIT 27.8 % (39.0-51.0); HEMOGLOBIN 9.1 GM/DL (13.0-17.0)
[2017-11-06 22:33] LABS: CARCINOEMBRYONIC ANTIGEN 2.6 NG/ML (0.2-5.0)
[2017-11-06] MEDS: SODIUM CHLORIDE 0.9% FLUSH 10 ML FLUSH IV FLUSH SCH (22:52)
[2017-11-06 23:10] LABS: CA 19-9 2.6 U/ML (0.0-35.0)
[2017-11-06 23:40] LABS: TROPONIN I LESS THAN 0.02 NG/ML (0.02-0.05)
[2017-11-07] VITALS (10 sets, daily range): BP systolic 130–162; BP diastolic 65–85; PULSE 73–93; RESP 16–18; TEMP 97.5–98.6; O2SAT 98–100
[2017-11-07] MEDS: SODIUM CHLOR 0.45% 1000 ML INJ 1,000 ML IV SCH ×3 (03:10→17:42)
[2017-11-07] MEDS ORDERED: CHLORHEXIDINE GLUCONATE 2 % 1 PACK (2 CLOTHS) TOPICAL PRN (03:45)
[2017-11-07] MEDS ORDERED: POVIDONE IODINE 5% (ANTISEPSIS KIT) 4 APPLICATIONS EACH NARE PRN (03:45)
[2017-11-07] MEDS ORDERED: SODIUM CHLORID 0.9% 500 ML IV PRN (03:45)
[2017-11-07] MEDS ORDERED: LACTATED RINGER'S 1000 ML IV PRN (03:45)
--- NOTE | 2017-11-07 07:57 | PD.CONS ---
HPI Service cardiology Consult Requested By Reason for Consult chest pain Primary Care Physician Ananda Ledezma MD History of Present Illness 57 yo AAM with CAD, CABG x 6 in 2008 (HENSON-LAD, SVG-RCA, SVG-post lat obtuse, SVG-RI, SVG-diag, SVG-diag2), PAD s/p LLE revascularization and great toe amputation, CKD stage 3, DM, and HTN who presents with dizziness, fatigue and chest discomfort x 3 days. He reports feeling gradual onset weakness and fatigue with L-sided chest discomfort described as a mild "pulling " sensation, felt with and without exertion. This discomfort does not feel like prior cardiac events. He also reports dark, tarry stools x several days with nausea. He recently had a colonoscopy with findings of 2 polyps otherwise unremarkable. Labs in the ED reveal Hgb 6.2, K+ 6, creat 2.4, troponins x 2 negative. PRBCs administered overnight; with resolution of chest pain. EKG does not show concerning ST segment or T wave changes. Currently resting comfortably without chest pain. EGD/colonoscopy planned for today. (Vanessa Angelo) Review of Systems Consitutional: COMPLAINS OF: Fatigue, DENIES: Fever, Chills, Weight gain, Weight loss Respiratory: COMPLAINS OF: See HPI, DENIES: Cough, Snoring, Shortness of breath , Wheezing, Sputum production Cardiovascular: COMPLAINS OF: See HPI, Chest pain, DENIES: Palpitations, Syncope, Tachycardia Gastrointestinal: COMPLAINS OF: Nausea, Change in bowel habits, Bloody stools, Melena, DENIES: Vomiting, Reflux (Vanessa Angelo) Past Family Social History Allergies: Uncoded Allergies: MERTHIALATE (Allergy, Intermediate, UNKNOWN, 06/08/11) Past Medical History CKD, stage 3, baseline Cr between 2-2.3, GFR between 34-41 Diabetes mellitus, type 2, poorly controlled with Hgb A1C 12.1% in 05/2017 PAD S/P LLE revascularization CAD S/P CABG x 6 in 2008 Hx of MRSA mediastinitis s/p bypass surgery HTN GERD Hyperlipidemia Colon polyps- tubular adenoma Vitamin D deficiency Vitamin B12 deficiency Past Surgical History Cholecystectomy CABG x 6 on 12/03/[address] Hoskins Several surgeries related to MRSA mediastinitis including I&Ds, wound vac, chest tube placement and removal and plastics closure with bilateral pectoralis major and bilateral rectus abdominis muscle flaps Colonoscopy Left hallux amputation in 2016 LLE revascularization in 2016 Reported Medications Reported Meds & Active Scripts Active Reported Dulcolax DR (Bisacodyl) 5 Mg Tabdr 5 Mg PO DAILY PRN Aspirin 81 Mg Chew 81 Mg CHEW DAILY Plavix (Clopidogrel Bisulfate) 75 Mg Tab 75 Mg PO DAILY Crestor (Rosuvastatin Calcium) 20 Mg Tab 20 Mg PO DAILY Jardiance (Empagliflozin) 25 Mg Tab 25 Mg PO DAILY Ergocalciferol 50,000 Unit Cap 50,000 Units PO Q7D Gabapentin 300 Mg Cap 300 Mg PO TID Glipizide 10 Mg Tab 10 Mg PO BIDAC Take 30 minutes before a meal [place] (Hydrocodone-Acetaminophen) 10-325 Mg Tab 1 Tab PO Q4H PRN Novolog Flexpen Inj (Insulin Aspart) 300 Unit/3 Ml Pen 1 Units SQ Tresiba Flextouch Pen Inj (Insulin Degludec Inj) 300 unit/3 ML Pen 1 Units SQ TID Tradjenta (Linagliptin) 5 Mg Tab 5 Mg PO DAILY Metoprolol Tartrate 25 Mg Tab 25 Mg PO DAILY Active Ordered Medications Current Medications Medications (Trade) Dose Ordered Sig/Christina Route Start Time Stop Time Status Last Admin (NS Flush) 2 ml UNSCH PRN IV FLUSH 11/06/17 15:15 (NS Flush) 2 ml BID IV FLUSH 11/06/17 21:00 11/06/17 22:52 (Zofran Odt) 4 mg Q6H PRN PO 11/06/17 15:15 (Protonix Inj) 40 mg DAILY IV PUSH 11/07/17 09:00 Sodium Chloride 1,000 ml @ 84 mls/hr [id number] IV 11/06/17 15:15 11/07/17 03:25 (NovoLOG SUPPLEMENTAL SCALE) 1 ACHS SLIDING SCALE SQ 11/06/17 17:00 Pantoprazole Sodium 80 mg/ Sodium Chloride 100 ml @ 10 mls/hr CONTINUOUS IV 11/06/17 15:30 11/07/17 08:00 (D50w (Vial) Inj) 50 ml UNSCH PRN IV PUSH 11/06/17 16:00 (Glucagon Inj) 1 mg UNSCH PRN OTHER 11/06/17 16:00 (Neurontin) 300 mg TID PO 11/07/17 09:00 (Lopressor) 25 mg DAILY PO 11/07/17 09:00 (Lipitor) 40 mg DAILY PO 11/07/17 09:00 Lactated Ringer's 1,000 ml @ 30 mls/hr Q24H PRN IV 11/07/17 03:45 11/10/17 03:44 Sodium Chloride 500 ml @ 30 mls/hr [id number] PRN IV 11/07/17 03:45 11/10/17 03:44 (Betadine 5% Antisepsis Kit) 1 applic HEALTH SERVICE COORDINATOR PRN EACH NARE 11/07/17 03:45 11/10/17 03:44 (Chlorhexidine 2% Cloth) 3 pack HEALTH SERVICE COORDINATOR PRN TOPICAL 11/07/17 03:45 11/10/17 03:44 Family History Past Medical History CKD, stage 3, baseline Cr between 2-2.3, GFR between 34-41 Diabetes mellitus, type 2, poorly controlled with Hgb A1C 12.1% in 05/2017 PAD S/P LLE revascularization CAD S/P CABG x 6 in 2008 Hx of MRSA mediastinitis s/p bypass surgery HTN GERD Hyperlipidemia Colon polyps- tubular adenoma Vitamin D deficiency Vitamin B12 deficiency Past Surgical History Cholecystectomy Noncontributory Social History Past Medical History CKD, stage 3, baseline Cr between 2-2.3, GFR between 34-41 Diabetes mellitus, type 2, poorly controlled with Hgb A1C 12.1% in 05/2017 PAD S/P LLE revascularization CAD S/P CABG x 6 in 2008 Hx of MRSA mediastinitis s/p bypass surgery HTN Drinks about 2-3 beers every other day Former smoker, smoked from age [age], smoked about 2-3 cigarettes per day Denies any illicit drug use 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 [employer] (Vanessa Angelo) Physical Exam Vital Signs Vital Signs Date Time Temp Pulse Resp B/P (MAP) Pulse Ox O2 Delivery O2 Flow Rate FiO2 11/07/17 05:32 98.3 87 18 130/65 (86) 99 11/07/17 04:00 88 11/07/17 01:00 92 11/07/17 00:54 98.2 93 17 144/84 (104) 100 11/06/17 23:45 97.6 90 16 136/78 100 11/06/17 22:58 97.6 90 15 122/69 100 11/06/17 20:46 11/06/17 20:24 98.2 91 16 133/79 (97) 100 11/06/17 19:41 97.8 91 14 138/73 (94) 100 Room Air 11/06/17 19:40 97.8 54 14 138/73 100 11/06/17 17:41 98.2 96 127/73 (91) 100 Room Air 11/06/17 17:33 98.2 100 19 139/76 11/06/17 17:18 98.2 94 139/76 (97) 100 11/06/17 15:58 97 20 139/76 (97) 11/06/17 15:50 98.2 98 12 133/76 100 11/06/17 12:45 97 Room Air 11/06/17 12:45 97 Room Air 11/06/17 12:45 97 11/06/17 11:50 97.6 92 24 108/54 (72) 100 Physical Exam GENERAL: SKIN: Warm and dry. HEAD: Atraumatic. Normocephalic. EYES: Pupils equal and round. No scleral icterus. No injection or drainage. ENT: No nasal bleeding or discharge. NECK: Trachea midline. No JVD. CARDIOVASCULAR: Regular rate and rhythm. no murmurs RESPIRATORY: No accessory muscle use. Clear to auscultation. GASTROINTESTINAL: Abdomen soft, non-tender, nondistended. MUSCULOSKELETAL: Extremities without clubbing, cyanosis, or edema. L great toe amputation NEUROLOGICAL: Awake and alert. No obvious cranial nerve deficits. Normal speech. PSYCHIATRIC: Appropriate mood and affect; insight and judgment normal. Laboratory Laboratory Tests Test 11/06/17 13:52 11/06/17 21:49 White Blood Count 4.8 Red Blood Count 2.68 Hemoglobin 6.2 9.1 Hematocrit 19.6 27.8 Mean Corpuscular Volume 73.2 Mean Corpuscular Hemoglobin 23.2 Mean Corpuscular Hemoglobin Concent 31.7 Red Cell Distribution Width 19.5 Platelet Count 192 Mean Platelet Volume 7.9 Neutrophils (%) (Auto) 66.7 Lymphocytes (%) (Auto) 17.6 Monocytes (%) (Auto) 12.3 Eosinophils (%) (Auto) 2.7 Basophils (%) (Auto) 0.7 Neutrophils # (Auto) 3.2 Lymphocytes # (Auto) 0.8 Monocytes # (Auto) 0.6 Eosinophils # (Auto) 0.1 Basophils # (Auto) 0.0 CBC Comment DIFF FINAL Differential Comment Prothrombin Time 9.7 Prothromb Time International Ratio 1.0 Activated Partial Thromboplast Time 20.4 Blood Urea Nitrogen 47 Creatinine 2.44 Random Glucose 198 Total Protein 6.1 Albumin 3.1 Calcium Level 8.0 Magnesium Level 2.3 Alkaline Phosphatase 66 Aspartate Amino Transf (AST/SGOT) 13 Alanine Aminotransferase (ALT/SGPT) 17 Total Bilirubin 0.2 Sodium Level 138 Potassium Level 6.6 4.9 Chloride Level 110 Carbon Dioxide Level 19.2 Anion Gap 9 Estimat Glomerular Filtration Rate 33 Total Creatine Kinase 82 72 Troponin I LESS THAN 0.02 LESS THAN 0.02 Lipase 256 Tumor Marker Alpha Fetoprotein 4.0 Carcinoembryonic Antigen 2.6 CA 19-9 Antigen 2.6 (Vanessa Angelo) Result Diagram: 11/06/17214811/06/17 2149 Imaging Last 48 hours Impressions Chest X-Ray 11/06/17 1157 Signed Impressions: CONCLUSION: Negative for an acute process Abdomen/Pelvis CT 11/06/17 0000 Signed Impressions: CONCLUSION: 1. 3.9 similar mass right lobe of the liver suspicious for primary or secondar y neoplasm of the liver. This would be amenable to pancreas biopsy 2. Site of primary is not identified. (Vanessa Angelo) Assessment and Plan Problem List: (1) CAD (coronary artery disease) ICD Codes: I25.10 - CAD (coronary artery disease) Status: Chronic (2) HTN (hypertension) ICD Codes: I10 - HTN (hypertension) Status: Chronic (3) Chest pain ICD Codes: R07.9 - Chest pain Status: Acute Assessment and Plan 57 yo AAM with CAD, CABG x 6 in 2008 (HENSON-LAD, SVG-RCA, SVG-post lat obtuse, SVG-RI, SVG-diag, SVG-diag2), PAD s/p LLE revascularization and great toe amputation, CKD stage 3, DM, and HTN who presents with dizziness, fatigue and chest discomfort x 3 days. He reports feeling gradual onset weakness and fatigue with L-sided chest discomfort described as a mild "pulling " sensation, felt with and without exertion. This discomfort does not feel like prior cardiac events. He also reports dark, tarry stools x several days with nausea. He recently had a colonoscopy with findings of 2 polyps otherwise unremarkable. Labs in the ED reveal Hgb 6.2, K+ 6, creat 2.4, troponins x 2 negative. PRBCs administered overnight; with resolution of chest pain. He reports compliance with Plavix and asa, but did run out of Plavix 5 days ago. atypical chest pain- troponin x 2 negative, EKG nonischemic will monitor troponin trend. continue medical management consider ischemic workup if necessary once Hgb improves >10 symptomatic anemia- s/p PRBC, EGD/cscope planned for today acute on chronic CKD- improving s/p IVF liver mass 3.9cm seen on CT (Vanessa Angelo) Assessment and Plan Patient with 2-3 days of bloody stools and chest pain over same duration, which resolved last night. Found with Hgb 6.2 today. Scheduled for colonoscopy/endoscopy today. VIPIN on CKD with hyperkalemia, suspect from hypoperfusion from anemia Angina Pectoris due to symptomatic anemia. Rec: Treat GIB, transfuse PRBCs for Hgb>10. Continue metoprolol tartrate 25mg bid. Hold antiplatelets therapy (patient ran out of plavix on 11/02) GI to comment after EGD/Colonoscopy today when patient may resume antiplatelet therapy ( ASA or Plavix) (Bryant Tillman DO) Problem Qualifiers (1) Chest pain: Qualified Codes: R07.9 - Chest pain, unspecified Vanessa Angelo Nov 07, 2017 07:57 Bryant Tillman DO Nov 07, 2017 08:24
[2017-11-07] MEDS: INSULIN ASPART SUPPLEMENTAL SCALE SQ SCH ×4 (08:00→21:29)
[2017-11-07] MEDS: ATORVASTATIN 40 MG TAB PO SCH (08:47)
[2017-11-07] MEDS: PANTOPRAZOLE SODIUM 40 MG VIAL IV PUSH SCH (08:47)
[2017-11-07] MEDS: METOPROLOL TARTRATE 25 MG TAB PO SCH ×2 (08:47→21:17)
[2017-11-07] MEDS: GABAPENTIN 300 MG CAP PO SCH ×3 (08:47→17:41)
[2017-11-07] MEDS ORDERED: METOPROLOL TARTRATE 25 MG TAB PO SCH (09:00)
[2017-11-07] MEDS: SODIUM CHLORIDE 0.9% FLUSH 10 ML FLUSH IV FLUSH SCH ×2 (09:00→21:17)
--- NOTE | 2017-11-07 10:11 | GIPROC ---
[facility] [address] [facility]. [facility], [address] EGD PROCEDURE REPORT EXAM DATE: 11/07/2017 PATIENT NAME: Jorje Oneill MR #: [id number] BIRTHDATE: 1960 ATTENDING: Cosme Nair MD ORDER #: [id number] CORPORATE DEVELOPMENT INTERN: Glory Jane and Phyllis Will STATUS: inpatient INDICATIONS: The patient is a 57 yr old male here for an EGD due to iron deficiency anemia PROCEDURE PERFORMED: EGD w/ biopsy MEDICATIONS: None and Per Anesthesia. TOPICAL ANESTHETIC: CONSENT: The patient understands the risks and benefits of the procedure and understands that these risks include, but are not limited to: sedation, allergic reaction, infection, perforation and/or bleeding. Alternative means of evaluation and treatment include, among others: physical exam, x-rays, and/or surgical intervention. The patient elects to proceed with this endoscopic procedure. medical equipment was checked for proper function. Hand hygiene and appropriate measures for infection prevention was taken. After the risks, benefits and alternatives of the procedure were thoroughly explained, Informed consent was verified, confirmed and timeout was successfully executed by the treatment team. The patient was anesthetized with topical anesthesia and the EC-[id number] (Pedi C) endoscope was introduced through the mouth and advanced to the second portion of the duodenum. Retroflexed views revealed no abnormalities The gastroscope was then slowly withdrawn and removed. ESOPHAGUS: The mucosa of the esophagus appeared normal. STOMACH: There was moderate gastritis in the gastric antrum. A biopsy was performed using cold forceps. Sample sent for histology. DUODENUM: The duodenal mucosa appeared normal in the 2nd part of the duodenum. ADVERSE EVENTS: There were no complications. IMPRESSIONS: 1. The esophagus appeared normal 2. There was gastritis in the gastric antrum; biopsy was performed 3. Normal duodenal mucosa in the 2nd part of the duodenum 4. Retroflexed views revealed no abnormalities RECOMMENDATIONS: 1. Await biopsy results. Biopsy results will not be ready for 7-10 days. If you don't hear from us in two weeks, call our office for biopsy results. 2. Anti-reflux regimen 3. Continue PPI PATIENT CONDITION: stable DISPOSITION: Inpatient REPEAT EXAM: Return 1 year EGD pending biopsy results Cosme Nair MD eSigned: Cosme Nair MD 11/07/2017 10:11 AM cc: Ananda Ledezma M.D. PATIENT NAME: OneillJorje MR#: [id number]
--- NOTE | 2017-11-07 10:24 | GIPROC ---
[facility] [address] [facility]. [facility], [address] COLONOSCOPY PROCEDURE REPORT EXAM DATE: 11/07/2017 PATIENT NAME: Jorje Oneill MR #: [id number] BIRTHDATE: 1960 ENDOSCOPIST: Cosme Nair MD ORDER #: [id number] FUEL DOCK ATTENDANT: Glory Jane and Phyllis Will STATUS: inpatient INDICATIONS: The patient is a 57 yr old male here for a colonoscopy due to anemia, non-specific and hematochezia PROCEDURE PERFORMED: Colonoscopy with biopsy MEDICATIONS: None and Per Anesthesia. PREP QUALITY: The [place] Bowel Prep Score was Right colon 2, Mid colon 2, and Left colon 2. Total = 6. PREP TYPE:GoLytely ESTIMATED BLOOD LOSS: None CONSENT: The patient understands the risks and benefits of the procedure and understands that these risks include, but are not limited to: sedation, allergic reaction, infection, perforation and/or bleeding. Alternative means of evaluation and treatment include, among others: physical exam, x-rays, and/or surgical intervention. The patient elects to proceed with this endoscopic procedure. medical equipment was checked for proper function. Hand hygiene and appropriate measures for infection prevention was taken. After the risks, benefits and alternatives of the procedure were thoroughly explained, Informed consent was verified, confirmed and timeout was successfully executed by the treatment team. A digital exam revealed external hemorrhoids The Pentax EC-[id number] endoscope was introduced through the anus and advanced to the cecum, which was identified by both the appendix and ileocecal valve. The instrument was then slowly withdrawn as the colon was fully examined. COLON FINDINGS: A polypoid shaped sessile polyp ranging between 3-5mm in size was found in the transverse colon. A polypectomy was performed with cold forceps. The resection was complete and the polyp tissue was completely retrieved. Retroflexed views revealed internal hemorrhoids and Retroflexed views revealed medium internal hemorrhoids The scope was then completely withdrawn from the patient and the procedure terminated. PROCEDURE WITHDRAWAL TIME:9minutes ADVERSE EVENTS: There were no complications. IMPRESSIONS: 1. A sessile polyp ranging between 3-5mm in size was found in the transverse colon; polypectomy was performed with cold forceps 2. Retroflexed views revealed internal hemorrhoids 3. Retroflexed views revealed medium internal hemorrhoids 4. Revealed external hemorrhoids RECOMMENDATIONS: 1. Await biopsy results. Biopsy results will not be ready for 7-10 days. If you don't hear from us in two weeks, call our office for results. 2. Continue surveillance 3. High fiber diet 4. Yearly hemoccult 5. Xray for Small bowel follow through RECALL: Return 3 years Colonoscopy, pending biopsy results Cosme Nair MD eSigned: Cosme Nair MD 11/07/2017 10:24 AM cc: Ananda Ledezma M.D.
--- NOTE | 2017-11-07 10:39 | HHI.PR ---
Subjective Remarks Pt just returned from EGD/colonoscopy He is planned for SBFT today No further chest discomfort Objective Vitals Vital Signs Date Time Temp Pulse Resp B/P (MAP) Pulse Ox O2 Delivery O2 Flow Rate FiO2 11/07/17 08:36 98.0 90 18 150/74 (99) 98 11/07/17 05:32 98.3 87 18 130/65 (86) 99 11/07/17 04:00 88 11/07/17 01:00 92 11/07/17 00:54 98.2 93 17 144/84 (104) 100 11/06/17 23:45 97.6 90 16 136/78 100 11/06/17 22:58 97.6 90 15 122/69 100 11/06/17 20:46 11/06/17 20:24 98.2 91 16 133/79 (97) 100 11/06/17 19:41 97.8 91 14 138/73 (94) 100 Room Air 11/06/17 19:40 97.8 54 14 138/73 100 11/06/17 17:41 98.2 96 127/73 (91) 100 Room Air 11/06/17 17:33 98.2 100 19 139/76 11/06/17 17:18 98.2 94 139/76 (97) 100 11/06/17 15:58 97 20 139/76 (97) 11/06/17 15:50 98.2 98 12 133/76 100 11/06/17 12:45 97 Room Air 11/06/17 12:45 97 Room Air 11/06/17 12:45 97 11/06/17 11:50 97.6 92 24 108/54 (72) 100 11/07/17 11/07/17 11/08/17 15:00 23:00 07:00 Intake Total 300 ml Balance 300 ml Other 300 ml Result Diagram: 11/06/17214811/06/172148 Other Results Laboratory Tests Test 11/06/17 13:52 11/06/17 21:49 White Blood Count 4.8 TH/MM3 Red Blood Count 2.68 MIL/MM3 Hemoglobin 6.2 GM/DL 9.1 GM/DL Hematocrit 19.6 % 27.8 % Mean Corpuscular Volume 73.2 FL Mean Corpuscular Hemoglobin 23.2 PG Mean Corpuscular Hemoglobin Concent 31.7 % Red Cell Distribution Width 19.5 % Platelet Count 192 TH/MM3 Mean Platelet Volume 7.9 FL Neutrophils (%) (Auto) 66.7 % Lymphocytes (%) (Auto) 17.6 % Monocytes (%) (Auto) 12.3 % Eosinophils (%) (Auto) 2.7 % Basophils (%) (Auto) 0.7 % Neutrophils # (Auto) 3.2 TH/MM3 Lymphocytes # (Auto) 0.8 TH/MM3 Monocytes # (Auto) 0.6 TH/MM3 Eosinophils # (Auto) 0.1 TH/MM3 Basophils # (Auto) 0.0 TH/MM3 CBC Comment DIFF FINAL Differential Comment Prothrombin Time 9.7 SEC Prothromb Time International Ratio 1.0 RATIO Activated Partial Thromboplast Time 20.4 SEC Blood Urea Nitrogen 47 MG/DL Creatinine 2.44 MG/DL Random Glucose 198 MG/DL Total Protein 6.1 GM/DL Albumin 3.1 GM/DL Calcium Level 8.0 MG/DL Magnesium Level 2.3 MG/DL Alkaline Phosphatase 66 U/L Aspartate Amino Transf (AST/SGOT) 13 U/L Alanine Aminotransferase (ALT/SGPT) 17 U/L Total Bilirubin 0.2 MG/DL Sodium Level 138 MEQ/L Potassium Level 6.6 MEQ/L 4.9 MEQ/L Chloride Level 110 MEQ/L Carbon Dioxide Level 19.2 MEQ/L Anion Gap 9 MEQ/L Estimat Glomerular Filtration Rate 33 ML/MIN Total Creatine Kinase 82 U/L 72 U/L Troponin I LESS THAN 0.02 NG/ML LESS THAN 0.02 NG/ML Lipase 256 U/L Tumor Marker Alpha Fetoprotein 4.0 NG/ML Carcinoembryonic Antigen 2.6 NG/ML CA 19-9 Antigen 2.6 U/ML Imaging Last Impressions Chest X-Ray 11/06/171156 Signed Impressions: CONCLUSION: Negative for an acute process Abdomen/Pelvis CT 11/06/17 0000 Signed Impressions: CONCLUSION: 1. 3.9 similar mass right lobe of the liver suspicious for primary or secondar y neoplasm of the liver. This would be amenable to pancreas biopsy 2. Site of primary is not identified. Last Impressions Chest X-Ray 11/06/171156 Signed Impressions: CONCLUSION: Negative for an acute process Objective Remarks General: NAD, AAOx3 Chest: CTA Cardiac: Regular Abd: +BS, soft ND/NT Ext: No edema A/P Problem List: (1) Symptomatic anemia ICD Codes: D64.9 - Anemia, unspecified Status: Acute Plan: Symptomatic Anemia GIB - Pt is a 57 y/o male with CKD stage 3-4, DM, PAD S/P LLE revascularization, CAD , HTN, and hyperlipidemia who presented to the ED on 11/06/17 with complaints of weakness, lightheadedness, and dizziness that began today. - Pt reported that he has been having liquid black and dark maroon in color stools for the last 2 days. He had multiple episodes yesterday, only one episode so far today. Pt has had some associated LUQ abdominal pain and some nausea for the last 2-3 days. - He had a recent outpt colonoscopy on 10/23/[address] Marsh which revealed two semi-pedunculated polyps ranging from 7-12 mm in size which were found in the ascending colon and proximal transverse colon, polypectomy was performed using snare cautery, and internal hemorrhoids. Pathology revealed the polyps were tubular adenomas. - Pt is normally on Plavix and ASA but has not taken the Plavix in 5 days. Pt denies NSAID use. - His labs at admission noted a significant drop in his H/H to 6.2/19.6. - Pt has been transfused with 3 units of PRBCs with improvement in his H/H to 9.1/27.8 - GI is following - Pt underwent evaluation with EGD/colonoscopy on 11/07/17 --> gastritis, sessile polyp ranging between 3-5mm in size was found in the transverse colon s/ p polypectomy, internal/external hemorrhoids - Pt was started on a Protonix gtt in the ED and continued on Protonix 40mg IV daily - SBFT is ordered for today - CT Abd/pelvis (11/06) --> 3.9 similar mass right lobe of the liver suspicious for primary or secondary neoplasm of the liver. This would be amenable to pancreas biopsy - Monitor H/H closely - Supportive care - DVT prophylaxis with SCDs (2) GI bleed ICD Codes: K92.2 - Gastrointestinal hemorrhage, unspecified Status: Acute Plan: - See above (3) Chest pain ICD Codes: R07.9 - Chest pain Status: Acute Plan: - Pt with chest pain at admission - Serial CE and EKGs are negative x 2 - Appreciate consult from Cardiology - Maxie that his angina was related to symptomatic anemia - Monitor clinical status with the blood transfusions (4) Afucd-yw-qcebkjk kidney injury ICD Codes: N17.9 - Gkrkk-md-qdhzijz kidney injury; N18.9 - Chronic kidney disease, unspecified Status: Acute Plan: Acute on chronic kidney disease, stage 3 Hyperkalemia - His BMP at admission revealed Cr 2.44/BUN 47, GFR 33, K+ 6.6 - Review of outpt records noted baseline Cr between 2-2.3 and GFR 34-41 - Give IVF and Calcium gluconate - Repeat K+ level on 11/06 was 4.9 - Awaiting repeat BMP this AM (5) Hyperkalemia ICD Codes: E87.5 - Hyperkalemia Status: Acute Plan: - See above (6) DM (diabetes mellitus) ICD Codes: E11.9 - DM (diabetes mellitus) Status: Chronic Plan: - Pt follows with Dr. Zelaya as an outpt - His home regimen includes: Novolog Flexpen 20 Units SQ TID, Tresiba Flextouch Pen Inj 50 Units HS, Tanzeum 30Mg SQ Weekly, and Glipizide 10 Mg PO BIDAC - Pt had been on Tradjenta and Jardiance but these were stopped in 09/2017 - NovoLog Medium dose SSI - Accu checks - Pt is diabetic diet, monitor blood glucose closely, he may need basal insulin added (7) HTN (hypertension) ICD Codes: I10 - HTN (hypertension) Status: Chronic Plan: - Metoprolol 25mg po BID was resumed this morning - Monitor (8) CAD (coronary artery disease) ICD Codes: I25.10 - CAD (coronary artery disease) Status: Chronic Plan: - Pt with hx of CAD s/p CABG x 6 in 2008 - Pt also with hx of PAD s/p LLE revascularization in 2015 - He was on BB, Crestor, ASA/Plavix - Cont. statin - BB resumed this morning. - ASA/Plavix on hold for GIB (9) Liver lesion ICD Codes: K76.9 - Liver disease, unspecified Status: Acute Plan: - CT Abd/pelvis (11/06) --> 3.9 similar mass right lobe of the liver suspicious for primary or secondary neoplasm of the liver. This would be amenable to pancreas biopsy - Order CT guided liver biopsy Problem Qualifiers (1) GI bleed: Qualified Codes: K92.2 - Gastrointestinal hemorrhage, unspecified (2) Chest pain: Qualified Codes: R07.9 - Chest pain, unspecified (3) Rsspz-fo-fnddvsk kidney injury: Qualified Codes: N17.9 - Acute kidney failure, unspecified; N18.3 - Chronic kidney disease, stage 3 (moderate) (4) DM (diabetes mellitus): Karime iJ Nov 07, 2017 10:39
[2017-11-07] MEDS ORDERED: MAGNESIUM CITRATE SOLN 300 ML BTL PO ONE ×2 (12:00→18:00)
[2017-11-07] MEDS ORDERED: PROPOFOL 200 MG/20 ML AMP IV ONE (12:00)
[2017-11-07 12:15] LABS: HEMOGLOBIN 9.4 GM/DL (13.0-17.0)
[2017-11-07 12:50] LABS: BICARBONATE 24.4 MEQ/L (21.0-32.0); BLOOD UREA NITROGEN 29 MG/DL (7-18); CALCIUM 8.2 MG/DL (8.5-10.1); CHLORIDE 111 MEQ/L (98-107); CREATININE 1.89 MG/DL (0.60-1.30); GLOMERULAR FILTRATION RATE 45 ML/MIN (>89); GLUCOSE,RANDOM 147 MG/DL (74-106); SODIUM (NA) 143 MEQ/L (136-145); TROPONIN I LESS THAN 0.02 NG/ML (0.02-0.05)
[2017-11-07] MEDS: BISACODYL EC 5 MG TABEC PO SCH ×2 (16:13→21:00)
--- NOTE | 2017-11-07 16:14 | RADRPT ---
EXAM DATE: 11/07/2017 4:07 PM EDT AGE/SEX: 57 years / Male INDICATIONS: Anemia, diarrhea and blood in stool. CLINICAL DATA: This is the patient's subsequent encounter. Patient reports that signs and symptoms h ave been present for 3 days and indicates a pain score of 0/10. MEDICAL/SURGICAL HISTORY: Hypertension. Diabetes mellitus type II. CABG. Cholecystectomy. COMPARISON: No prior exams available for comparison. FLUORO TIME: 0.6 IMAGE COUNT: 24 CONTRAST: FINDINGS: Preliminary film demonstrates a normal bowel gas pattern. Surgical clips in the right upper quadrant. The stomach is grossly unremarkable. Examination of the small bowel demonstrates normal mucosal pattern involving the jejunum and ileum. There is no evidence of mass or obstruction. No intraluminal filling defects are identified. Small bowel transit time is normal at 120 minutes. Fluoroscopy of the abdomen and terminal ileum demonstra hiram no abnormality. CONCLUSION: Unremarkable small bowel follow-through. Electronically signed by: Chan Ferrara MD 11/07/2017 4:13 PM EDT
--- NOTE | 2017-11-07 17:11 | EKG ---
Date Performed: 11/06/2017 Time Performed: 16:54:28 PTAGE: 57 years EKG: Sinus rhythm NONSPECIFIC T-WAVE ABNORMALITY BORDERLINE ECG PREVIOUS TRACING 11/06/2017 @ 11.58 Since the previous tracing, no significant change noted DOCTOR: Devan Mejia Interpretating Date/Time 11/07/2017 17:09:15
--- NOTE | 2017-11-07 17:11 | EKG ---
Date Performed: 11/06/2017 Time Performed: 11:58:45 PTAGE: 57 years EKG: Sinus rhythm NONSPECIFIC T-WAVE ABNORMALITY BORDERLINE ECG INTERPRETATION BASED ON A DEFAULT AGE OF 40 YEARS PREVIOUS TRACING : 01/26/2016 07.31 Since the previous tracing, no significant change not ed DOCTOR: Devan Mejia Interpretating Date/Time 11/07/2017 17:08:44
--- NOTE | 2017-11-07 17:12 | EKG ---
Date Performed: 11/07/2017 Time Performed: 01:49:23 PTAGE: 57 years EKG: Sinus rhythm NONSPECIFIC T-WAVE ABNORMALITY BORDERLINE ECG PREVIOUS TRACING : 11/06/2017 21.36 Since the previous tracing, no significant change noted DOCTOR: Devan Mejia Interpretating Date/Time 11/07/2017 17:10:06
--- NOTE | 2017-11-07 17:12 | EKG ---
Date Performed: 11/06/2017 Time Performed: 21:36:50 PTAGE: 57 years EKG: Sinus rhythm NONSPECIFIC T-WAVE ABNORMALITY BORDERLINE ECG PREVIOUS TRACING : 11/06/2017 16.54 Since the previous tracing, no significant change noted DOCTOR: Devan Mejia Interpretating Date/Time 11/07/2017 17:09:56
[2017-11-08] VITALS (7 sets, daily range): BP systolic 96–147; BP diastolic 48–88; PULSE 68–85; RESP 12–18; TEMP 97.9–98.6; O2SAT 98–100
[2017-11-08 07:31] LABS: AUTOMATED NEUTROPHIL # 1.9 TH/MM3 (1.8-7.7); BASOPHIL % 1.1 % (0.0-2.0); EOSINOPHIL # 0.2 TH/MM3 (0-0.4); EOSINOPHIL % 4.4 % (0.0-4.0); HEMATOCRIT 26.6 % (39.0-51.0); HEMOGLOBIN 8.9 GM/DL (13.0-17.0); MEAN CORPUSCULAR HEMOGLOBIN 25.6 PG (27.0-34.0); MEAN CORPUSCULAR HGB CONC 33.2 % (32.0-36.0); MEAN PLATELET VOLUME 7.7 FL (7.0-11.0); MONO % 15.4 % (0.0-8.0); MONOCYTE # 0.6 TH/MM3 (0-0.9); NEUT % 51.1 % (16.0-70.0); PLATELET COUNT 185 TH/MM3 (150-450); RED BLOOD COUNT 3.46 MIL/MM3 (4.50-5.90); RED CELL DISTRIBUTION WIDTH 20.6 % (11.6-17.2); WHITE BLOOD COUNT 3.7 TH/MM3 (4.0-11.0)
[2017-11-08 07:55] LABS: BICARBONATE 23.2 MEQ/L (21.0-32.0); CALCIUM 7.9 MG/DL (8.5-10.1); CREATININE 1.71 MG/DL (0.60-1.30); MAGNESIUM 1.9 MG/DL (1.5-2.5)
[2017-11-08] MEDS: INSULIN ASPART SUPPLEMENTAL SCALE SQ SCH ×2 (08:00→12:00)
[2017-11-08] MEDS: PANTOPRAZOLE SODIUM 40 MG VIAL IV PUSH SCH (09:00)
[2017-11-08] MEDS: SODIUM CHLORIDE 0.9% FLUSH 10 ML FLUSH IV FLUSH SCH (09:00)
[2017-11-08] MEDS: METOPROLOL TARTRATE 25 MG TAB PO SCH (09:00)
[2017-11-08] MEDS: GABAPENTIN 300 MG CAP PO SCH ×2 (09:00→12:35)
[2017-11-08] MEDS: ATORVASTATIN 40 MG TAB PO SCH (09:00)
--- NOTE | 2017-11-08 09:29 | HHI.GIFU ---
Subjective Remarks Pt resting in bed Has had multiple BMs since SB, denies any continued blood in stool Denies nausea, vomiting, abdominal pain He is concerned about being discharged in time for a conference tomorrow Planned for liver biopsy today Objective Vitals I&O Vital Signs Date Time Temp Pulse Resp B/P (MAP) Pulse Ox O2 Delivery O2 Flow Rate FiO2 11/08/17 08:00 98.6 73 13 147/78 (101) 100 11/08/17 04:25 98.4 74 18 127/64 (85) 99 11/08/17 04:00 76 11/08/17 02:36 115/69 (84) 11/08/17 00:37 98.4 85 18 96/48 (64) 98 11/08/17 00:00 76 11/07/17 21:11 98.6 81 16 147/82 (103) 100 11/07/17 20:10 80 11/07/17 17:31 73 11/07/17 16:51 97.6 79 18 162/79 (106) 100 11/07/17 12:33 97.5 78 18 141/85 (103) 100 11/07/17 10:41 97.4 79 18 129/60 (83) 100 I/O 11/07/17 11/07/17 11/07/17 11/08/17 11/08/17 11/08/17 07:00 15:00 23:00 07:00 15:00 23:00 Intake Total 440 ml 300 ml Balance 440 ml 300 ml Packed Cells 400 ml Blood Product IV Normal Saline Flush 40 ml Other 300 ml # Voids 1 Laboratory Laboratory Tests Test 11/07/17 12:02 11/07/17 16:18 11/08/17 06:44 Hemoglobin 9.4 8.9 Hematocrit 29.0 26.6 Blood Urea Nitrogen 29 19 Creatinine 1.89 1.71 Random Glucose 147 217 Calcium Level 8.2 7.9 Sodium Level 143 144 Potassium Level 4.6 4.4 Chloride Level 111 113 Carbon Dioxide Level 24.4 23.2 Anion Gap 8 8 Estimat Glomerular Filtration Rate 45 50 Total Creatine Kinase 78 Troponin I LESS THAN 0.02 Nasal Screen MRSA (PCR) NEGATIVE Staphylococcus aureus (PCR)(LAB) NEGATIVE White Blood Count 3.7 Red Blood Count 3.46 Mean Corpuscular Volume 77.0 Mean Corpuscular Hemoglobin 25.6 Mean Corpuscular Hemoglobin Concent 33.2 Red Cell Distribution Width 20.6 Platelet Count 185 Mean Platelet Volume 7.7 Neutrophils (%) (Auto) 51.1 Lymphocytes (%) (Auto) 28.0 Monocytes (%) (Auto) 15.4 Eosinophils (%) (Auto) 4.4 Basophils (%) (Auto) 1.1 Neutrophils # (Auto) 1.9 Lymphocytes # (Auto) 1.0 Monocytes # (Auto) 0.6 Eosinophils # (Auto) 0.2 Basophils # (Auto) 0.0 CBC Comment DIFF FINAL Differential Comment Magnesium Level 1.9 Imaging Last Impressions Small Bowel X-Ray 11/07/17 0000 Signed Impressions: CONCLUSION: Unremarkable small bowel follow-through. Chest X-Ray 11/06/17 1157 Signed Impressions: CONCLUSION: Negative for an acute process Abdomen/Pelvis CT 11/06/17 0000 Signed Impressions: CONCLUSION: 1. 3.9 similar mass right lobe of the liver suspicious for primary or secondar y neoplasm of the liver. This would be amenable to pancreas biopsy 2. Site of primary is not identified. Physical Exam HEENT: Normocephalic; atraumatic CHEST: Even/unlabored CARDIAC: RRR ABDOMEN: Soft, nondistended, nontender; bowel sounds active EXTREMITIES: No clubbing, cyanosis, or edema. SKIN: Normal; no rash; no jaundice. 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 Assessment and Plan Plan Assessment: - Rectal bleeding with severe anemia- H/H 6.2/19.6 on admission Reports of maroon and black colored stools since Monday, multiple episodes yesterday, only one episode of stool so far today. Associated LUQ pain and tenderness. Reports of nausea, denies emesis. Recent colonoscopy (October 23) --> Two semi-pedunculated polyps ranging from 7-12 mm in size were found in the ascending colon and proximal transverse colon, polypectomy using snare cautery. Colon mucosa was otherwise normal. Internal hemorrhoids. Pathology revealed polyps were tubular adenomas. Has never had EGD Of note, on Plavix, has not had any since Monday because Rx ran out. Also on daily baby ASA Reports a few beers, every other day. Denies NSAIDs EGD (11/07) --> Normal esophagus. Gastritis in the gastric antrum. Normal duodenal mucosa in the 2nd part of the duodenum. Colonoscopy (11/07) --> Sessile polyp ranging between 3-5 mm in size found in the transverse colon, polypectomy. Internal and external hemorrhoids SBFT --> Unremarkable - Liver mass- Pt reports has known spot on his liver for a long time that his PCP was following, was told it is related to a fatty liver CT abdomen and pelvis WO IV contrast --> 3.9 similar mass right lobe of the liver suspicious for primary or secondary neoplasm of the liver. This would be amenable to pancreas biopsy Site of primary is not identified. AFP-4.0 - VIPIN on CKD with hyperkalemia- Pt has seen nephrology in the past- not on dialysis (11/08) H/H stable over night. Pt had multiple BMs after SBFT, denies any continued GI bleeding. Liver biopsy scheduled for today. Pt is concerned about when he is being discharged because he has a conference tomorrow. Plan: EGD biopsy pending Liver biopsy Capsule endoscopy outpatient Further recommendations based on clinical course and results of above Pt has been seen and examined by myself and Dr. Mason and this note is written on her behalf Nanette Burciaga Nov 08, 2017 09:29
--- NOTE | 2017-11-08 11:29 | HHI.DCPOC ---
Discharge Care Plan Diagnosis: (1) GI bleed (2) Liver lesion Goals to Promote Your Health * To prevent worsening of your condition and complications * To maintain your health at the optimal level Directions to Meet Your Goals Take your medications as prescribed Follow your dietary instruction Follow activity as directed Keep your appointments as scheduled Take your immunizations and boosters as scheduled If your symptoms worsen call your PCP, if no PCP go to Urgent Care Center or Emergency Room Smoking is Dangerous to Your Health. Avoid second hand smoke Call the 24-hour hour crisis hotline for domestic abuse at Melissa Corona Nov 08, 2017 11:29
--- NOTE | 2017-11-08 11:29 | HHI.DS ---
Discharge Summary Admission Date Nov 06, 2017 at 15:22 Discharge Date: Nov 08, 2017 Admitting Diagnosis acute GI bleed, hyperkalemia, VIPIN, chest pain (1) Symptomatic anemia ICD Codes: D64.9 - Anemia, unspecified Status: Acute (2) GI bleed ICD Codes: K92.2 - Gastrointestinal hemorrhage, unspecified Status: Acute (3) Chest pain ICD Codes: R07.9 - Chest pain Status: Acute (4) Xsftf-ez-rdtonqh kidney injury ICD Codes: N17.9 - Idiix-ev-xdfncjs kidney injury; N18.9 - Chronic kidney disease, unspecified Status: Acute (5) Hyperkalemia ICD Codes: E87.5 - Hyperkalemia Status: Acute (6) DM (diabetes mellitus) ICD Codes: E11.9 - DM (diabetes mellitus) Status: Chronic (7) HTN (hypertension) ICD Codes: I10 - HTN (hypertension) Status: Chronic (8) CAD (coronary artery disease) ICD Codes: I25.10 - CAD (coronary artery disease) Status: Chronic (9) Liver lesion ICD Codes: K76.9 - Liver disease, unspecified Status: Acute Consultants Dr. Nair, GI Dr. Tillman, cardiology Dr. Khalil, IR Brief History Mr. Oneill is a 57 y/o male with CKD stage 3, DM, PAD S/P LLE revascularization, CAD, HTN, and hyperlipidemia who presented to the ED on 11/06/17 with complaints of weakness, lightheadedness, and dizziness that began today. Pt reported that he has been having liquid black and dark maroon in color stools for the last 2 days. He had multiple episodes yesterday, only one episode so far today. Pt reports associated LUQ abdominal pain, intermittently and some nausea for the last 2-3 days. He also reported some chest pain with exertion and at rest on the left side of the chest which had been continuous since yesterday. He had some associated SOB increased dizziness and lightheadedness today. He denies any vomiting or acid reflux. Pt had a recent outpt colonoscopy on 10/23/[address] Marsh which revealed two semi-pedunculated polyps ranging from 7-12 mm in size which were found in the ascending colon and proximal transverse colon, polypectomy was performed using snare cautery, and internal hemorrhoids. Pathology revealed the polyps were tubular adenomas. Pt is normally on Plavix and ASA but has not taken the Plavix since Monday because he needs his prescription refilled. Pt denies NSAID use. His labs at admission noted a significant drop in his H/H to 6.2/19.6. His BMP revealed Cr 2.44/BUN 47, GFR 33 , K+ 6.6. Cardiac enzymes are negative. CT Abd/pelvis is pending. CBC/BMP: 11/08/17 0644 11/08/17 0644 Significant Findings Laboratory Tests Test 11/06/17 13:52 11/06/17 21:49 11/07/17 12:02 11/07/17 16:18 Red Blood Count 2.68 MIL/MM3 (4.50-5.90) Hemoglobin 6.2 GM/DL (13.0-17.0) 9.1 GM/DL (13.0-17.0) 9.4 GM/DL (13.0-17.0) Hematocrit 19.6 % (39.0-51.0) 27.8 % (39.0-51.0) 29.0 % (39.0-51.0) Mean Corpuscular Volume 73.2 FL (80.0-100.0) Mean Corpuscular Hemoglobin 23.2 PG (27.0-34.0) Mean Corpuscular Hemoglobin Concent 31.7 % (32.0-36.0) Red Cell Distribution Width 19.5 % (11.6-17.2) Monocytes (%) (Auto) 12.3 % (0.0-8.0) Lymphocytes # (Auto) 0.8 TH/MM3 (1.0-4.8) Prothrombin Time 9.7 SEC (9.8-11.6) Activated Partial Thromboplast Time 20.4 SEC (24.3-30.1) Blood Urea Nitrogen 47 MG/DL (7-18) 29 MG/DL (7-18) Creatinine 2.44 MG/DL (0.60-1.30) 1.89 MG/DL (0.60-1.30) Random Glucose 198 MG/DL (74-106) 147 MG/DL (74-106) Total Protein 6.1 GM/DL (6.4-8.2) Albumin 3.1 GM/DL (3.4-5.0) Calcium Level 8.0 MG/DL (8.5-10.1) 8.2 MG/DL (8.5-10.1) Aspartate Amino Transf (AST/SGOT) 13 U/L (15-37) Potassium Level 6.6 MEQ/L (3.5-5.1) Chloride Level 110 MEQ/L (98-107) 111 MEQ/L (98-107) Carbon Dioxide Level 19.2 MEQ/L (21.0-32.0) Estimat Glomerular Filtration Rate 33 ML/MIN (>89) 45 ML/MIN (>89) Troponin I LESS THAN 0.02 NG/ML LESS THAN 0.02 NG/ML LESS THAN 0.02 NG/ML Test 11/08/17 06:44 White Blood Count 3.7 TH/MM3 (4.0-11.0) Red Blood Count 3.46 MIL/MM3 (4.50-5.90) Hemoglobin 8.9 GM/DL (13.0-17.0) Hematocrit 26.6 % (39.0-51.0) Mean Corpuscular Volume 77.0 FL (80.0-100.0) Mean Corpuscular Hemoglobin 25.6 PG (27.0-34.0) Red Cell Distribution Width 20.6 % (11.6-17.2) Monocytes (%) (Auto) 15.4 % (0.0-8.0) Eosinophils (%) (Auto) 4.4 % (0.0-4.0) Blood Urea Nitrogen 19 MG/DL (7-18) Creatinine 1.71 MG/DL (0.60-1.30) Random Glucose 217 MG/DL (74-106) Calcium Level 7.9 MG/DL (8.5-10.1) Chloride Level 113 MEQ/L (98-107) Estimat Glomerular Filtration Rate 50 ML/MIN (>89) PE at Discharge General: NAD, AAOx3 Chest: CTA Cardiac: Regular Abd: +BS, soft ND/NT Ext: No edema Hospital Course Symptomatic Anemia GIB - Pt is a 57 y/o male with CKD stage 3-4, DM, PAD S/P LLE revascularization, CAD , HTN, and hyperlipidemia who presented to the ED on 11/06/17 with complaints of weakness, lightheadedness, and dizziness that began today. - Pt reported that he has been having liquid black and dark maroon in color stools for the last 2 days. He had multiple episodes yesterday, only one episode so far today. Pt has had some associated LUQ abdominal pain and some nausea for the last 2-3 days. - He had a recent outpt colonoscopy on 10/23/[address] Marsh which revealed two semi-pedunculated polyps ranging from 7-12 mm in size which were found in the ascending colon and proximal transverse colon, polypectomy was performed using snare cautery, and internal hemorrhoids. Pathology revealed the polyps were tubular adenomas. - Pt is normally on Plavix and ASA but has not taken the Plavix in 5 days. Pt denies NSAID use. - His labs at admission noted a significant drop in his H/H to 6.2/19.6. - Pt has been transfused with 3 units of PRBCs with improvement in his H/H to 9.1/27.8 - GI is following - Pt underwent evaluation with EGD/colonoscopy on 11/07/17 --> gastritis, sessile polyp ranging between 3-5mm in size was found in the transverse colon s/ p polypectomy, internal/external hemorrhoids - Pt was started on a Protonix gtt in the ED and continued on Protonix 40mg IV daily - SBFT is ordered for today - CT Abd/pelvis (11/06) --> 3.9 similar mass right lobe of the liver suspicious for primary or secondary neoplasm of the liver. This would be amenable to pancreas biopsy - Monitor H/H closely - Supportive care - DVT prophylaxis with SCDs Chest pain - Pt with chest pain at admission - Serial CE and EKGs are negative x 2 - Appreciate consult from Cardiology - [place] that his angina was related to symptomatic anemia - Monitor clinical status with the blood transfusions Acute on chronic kidney disease, stage 3 Hyperkalemia - His BMP at admission revealed Cr 2.44/BUN 47, GFR 33, K+ 6.6 - Review of outpt records noted baseline Cr between 2-2.3 and GFR 34-41 - Give IVF and Calcium gluconate - Repeat K+ level on 11/06 was 4.9 - Awaiting repeat BMP this AM Hyperkalemia - See above DM (diabetes mellitus) - Pt follows with Dr. Zelaya as an outpt - His home regimen includes: Novolog Flexpen 20 Units SQ TID, Tresiba Flextouch Pen Inj 50 Units HS, Tanzeum 30Mg SQ Weekly, and Glipizide 10 Mg PO BIDAC - Pt had been on Tradjenta and Jardiance but these were stopped in 09/2017 - NovoLog Medium dose SSI - Accu checks - Pt is diabetic diet, monitor blood glucose closely, he may need basal insulin added HTN (hypertension) - Metoprolol 25mg po BID was resumed this morning - Monitor CAD (coronary artery disease) - Pt with hx of CAD s/p CABG x 6 in 2008 - Pt also with hx of PAD s/p LLE revascularization in 2015 - He was on BB, Crestor, ASA/Plavix - Cont. statin - BB resumed this morning. - ASA/Plavix on hold for GIB Liver lesion - CT Abd/pelvis (11/06) --> 3.9 similar mass right lobe of the liver suspicious for primary or secondary neoplasm of the liver. This would be amenable to pancreas biopsy - request CT guided liver biopsy with IR. IR unable to do liver biopsy due to barium contrast in bowel causing artifact - patient will need to return as an outpatient for liver biopsy with IR Pt Condition on Discharge: Stable Discharge Disposition: Discharge Home Discharge Instructions DIET: Follow Instructions for: As Tolerated, No Restrictions Activities you can perform: Regular-No Restrictions Follow up Referrals: Clinic - 3-5 Days with Interventional Radiology Gastroenterology - 2 Weeks with Cosme Nair MD PCP Follow-up - [address] Ledezma Continued Medications: Bisacodyl (Dulcolax ) 5 Mg Tabdr 5 MG PO DAILY PRN for CONSTIPATION, #30 TAB 0 Refills Empagliflozin (Jardiance) 25 Mg Tab 25 MG PO DAILY for Blood Sugar Management, #30 TAB 0 Refills Ergocalciferol (Ergocalciferol) 50,000 Unit Cap 67395 UNITS PO Q7D for Nutritional Supplement, #30 CAP 0 Refills Gabapentin (Gabapentin) 300 Mg Cap 300 MG PO TID, #90 CAP 0 Refills Glipizide (Glipizide) 10 Mg Tab 10 MG PO BIDAC for Blood Sugar Management, #60 TAB 0 Refills Take 30 minutes before a meal Hydrocodone-Acetaminophen (Spivey) 10-325 Mg Tab 1 TAB PO Q4H PRN for PAIN, TAB 0 Refills Insulin Aspart Inj (Novolog Flexpen Inj) 300 Unit/3 Ml Pen 1 UNITS SQ for Blood Sugar Management, #1 PEN 0 Refills Insulin Degludec Inj (Tresiba Flextouch Pen Inj) 300 unit/3 ML Pen 1 UNITS SQ TID for Blood Sugar Management, #15 ML 0 Refills Linagliptin (Tradjenta) 5 Mg Tab 5 MG PO DAILY for Blood Sugar Management, #30 TAB 0 Refills Metoprolol Tartrate (Metoprolol Tartrate) 25 Mg Tab 25 MG PO DAILY, #30 TAB 0 Refills Rosuvastatin (Crestor) 20 Mg Tab 20 MG PO DAILY for Cholesterol Management, #30 TAB 0 Refills Discontinued Medications: Aspirin (Aspirin) 81 Mg Chew 81 MG CHEW DAILY, TAB 0 Refills Clopidogrel (Plavix) 75 Mg Tab 75 MG PO DAILY for Blood Clot Prevention, #30 TAB 0 Refills Melissa Corona Nov 08, 2017 11:29
[2017-11-08] MEDS ORDERED: fentaNYL CITRATE 250 MCG/5 ML AMP ONE (13:52)
[2017-11-08] MEDS ORDERED: MIDAZOLAM HCL 5 MG/5 ML VIAL ONE (13:52)
--- NOTE | 2017-11-08 15:00 | RADRPT ---
EXAM DATE: 11/08/2017 2:41 PM EDT AGE/SEX: 57 years / Male INDICATIONS: Liver mass, pre liver biopsy. CLINICAL DATA: This is the patient's initial encounter. Patient reports that signs and symptoms have been present for 1 day and indicates a pain score of 0/10. MEDICAL/SURGICAL HISTORY: Cardiovascular disease. Hypertension. Diabetes. CABG. Cholecystect jordan. ORAL CONTRAST: No oral contrast ingested. RADIATION DOSE: 10.42 CTDI (mGy) COMPARISON: No prior exams available for comparison. TECHNIQUE: Multiple contiguous axial images were obtained through the abdomen. Images were obtained using multiple row detector helical technique. No oral contrast ingested. Using dose reduction techni ques, radiation dose was kept as low as reasonably achievable to obtain optimal diagnostic quality im ages. FINDINGS: Patient was brought down for biopsy of liver mass. Large amount barium is in the colon making detecti on of the mass to biopsy impossible. CONCLUSION: 1. Unable to biopsy because of retained barium. Patient will reschedule as an outpatient Electronically signed by: Taj Khalil MD 11/08/2017 2:59 PM EDT
== END 2017-11-08 17:33 | disposition home or self-care (01) | DRG 378 ==
LOC: NEPE 11:39 → NEDA 15:22 → NEPHCDU 20:20
PROVIDERS: ADMIT Hospitalist; ATTEND Hospitalist
PROC: 30233N1 Transfusion of Nonautologous Red Blood Cells into Peripheral Vein, Percutaneous Approach (ICD-10-PCS; 2017-11-06)
PROC: 0DBL8ZZ Excision of Transverse Colon, Via Natural or Artificial Opening Endoscopic (ICD-10-PCS; principal; 2017-11-07 10:00)
PROC: 0DB78ZX Excision of Stomach, Pylorus, Via Natural or Artificial Opening Endoscopic, Diagnostic (ICD-10-PCS; 2017-11-07 10:00)
DX: K92.1 Melena (principal); N17.9 Acute kidney failure, unspecified; E11.22 Type 2 diabetes mellitus with diabetic chronic kidney disease; K76.0 Fatty (change of) liver, not elsewhere classified; E11.65 Type 2 diabetes mellitus with hyperglycemia; N18.3 Chronic kidney disease, stage 3 (moderate); D50.9 Iron deficiency anemia, unspecified; I12.9 Hypertensive chronic kidney disease with stage 1 through stage 4 chronic kidney disease, or unspecified chronic kidney disease; D49.0 Neoplasm of unspecified behavior of digestive system; E87.5 Hyperkalemia; I25.10 Atherosclerotic heart disease of native coronary artery without angina pectoris; E78.5 Hyperlipidemia, unspecified; K21.9 Gastro-esophageal reflux disease without esophagitis; D12.3 Benign neoplasm of transverse colon; K29.70 Gastritis, unspecified, without bleeding; E53.8 Deficiency of other specified B group vitamins; E55.9 Vitamin D deficiency, unspecified; R07.89 Other chest pain; G43.909 Migraine, unspecified, not intractable, without status migrainosus; R10.12 Left upper quadrant pain; K64.4 Residual hemorrhoidal skin tags; K64.8 Other hemorrhoids; Z89.419 Acquired absence of unspecified great toe; Z79.4 Long term (current) use of insulin; Z85.118 Personal history of other malignant neoplasm of bronchus and lung; Z86.14 Personal history of Methicillin resistant Staphylococcus aureus infection; Z87.891 Personal history of nicotine dependence; Z92.21 Personal history of antineoplastic chemotherapy; Z92.3 Personal history of irradiation; Z95.1 Presence of aortocoronary bypass graft; Z79.02 Long term (current) use of antithrombotics/antiplatelets; Z79.82 Long term (current) use of aspirin; Z86.010 Personal history of colon polyps; Z90.49 Acquired absence of other specified parts of digestive tract
CPT/HCPCS: 36430; 71045; 74150; 74176; 74250; 80048; 80053; 82105; 82378; 82550; 82948; 83690; 83735; 84132; 84484; 85014; 85018; 85025; 85610; 85730; 86301; 86850; 86900; 86901; 86920; 87640; 87641; 88305; 88312; 93005; 94664; 96365; 96375; C9113; J1815; J2250; J2270; J2765; J3010; J7030; J7050; J7611; P9016

== ENCOUNTER 2017-11-13 08:46 | Day surgery (SDC) | payer OTHER ==
[~2017-11-13] VITALS: Ht 182.9 cm; Wt 90.9 kg
[2017-11-13] VITALS (8 sets, daily range): BP systolic 121–147; BP diastolic 66–86; PULSE 80–94; RESP 18; TEMP 97.5–98.4; O2SAT 98–100
[~2017-11-13 08:46] MED LIST changes: -ASPI81TA11 PO; -BISA5TAB5 PO; -CHOL50006 PO; -CLOP75TA PO; -CRES20TA PO; -CYCL1PAK PO; +DULC5TAB PO; -ERGO50000 PO; -GABA300C3 PO; +GABA300C5 PO; -HYDR-3129 PO; +HYDR-3366 PO; -LOSA25 PO; -METO25 PO; +METO25TA3 PO; +ROSU20 PO; -VITA100020 PO; +VITA500012 PO
[2017-11-13] MEDS ORDERED: SODIUM CHLOR 0.9% 1000 ML IV SCH (10:00)
[2017-11-13] MEDS ORDERED: MIDAZOLAM HCL 2 MG/2 ML VIAL ONE (10:14)
[2017-11-13] MEDS ORDERED: THROMBIN (TOPICAL) 5,000 UNIT VIAL ONE (10:41)
--- NOTE | 2017-11-13 10:51 | PD.RAD ---
Post CT Procedure Prog Note Pre Procedure Diagnosis: (1) Liver lesion Post Procedure Diagnosis: (1) Liver lesion Procedure Date: Nov 13, 2017 Supervising Radiologist: Rey Francis Anesthesia: Conscious Sedation Plan of Activity Patient to Unit: ROPU Patient Condition: Good See PACS Report for procedural detail/treatment Rey Francis MD Nov 13, 2017 10:51
[2017-11-13] MEDS ORDERED: HYDROmorphone HCL 2 MG TAB PO PRN (11:00)
[2017-11-13 12:46] LABS: HEMATOCRIT 28.1 % (39.0-51.0)
[2017-11-13 14:37] LABS: HEMATOCRIT 27.9 % (39.0-51.0)
--- NOTE | 2017-11-13 15:20 | RADRPT ---
EXAM DATE: 11/13/2017 11:07 AM EDT AGE/SEX: 57 years / Male INDICATIONS: Liver mass. CLINICAL DATA: This is the patient's initial encounter. Patient reports that signs and symptoms have been present for 1 day and indicates a pain score of 0/10. MEDICAL/SURGICAL HISTORY: Cardiovascular disease. Hypertension. None. COMPARISON: No prior exams available for comparison. BIOPSY SITE: Right liver MEDICATION(S): 3mg midazolam (Versed) IV 150mcg fentanyl (Sublimaze) IV DEVICE(S): 18 gauge BARD biopsy needle 3 core biopsies were obtained. . . PROCEDURE: CT guided Right liver mass biopsy Prior to the procedure informed consent was obtained. Any appropriate prior imaging studies were rev iewed. Using automated exposure control and adjustment of the mA and/or kV according to patient size, radiat ion dose was kept as low as reasonably achievable to obtain optimal diagnostic quality images. DICOM format image data is available electronically for review and comparison. The site was prepped in a sterile fashion. Full sterile technique was used, including cap, mask, sintia rile gloves and gown and a large sterile sheet. Hand hygiene and 2% chlorhexidine and/or betadine/al cohol prep was utilized per protocol for cutaneous antisepsis. The skin and subcutaneous tissues wer e infiltrated with local anesthetic solution. With CT guidance the inferior right lobe mass was localized. A 17-gauge guide needle was advanced to the periphery of the mass. Biopsy was performed using the prescribed needle as above. Tract was subs equently embolized with small amount of Gelfoam. Adequate hemostasis was obtained with compression at the puncture site. Follow-up CT scan reveals no hemorrhage. The patient tolerated the procedure well and there were no complications. The patient was returned to the Radiology Outpatient Unit in stable condition. CONCLUSION: 1. Uncomplicated CT guided biopsy of right hepatic mass, as above. Electronically signed by: Rey Francis MD 11/13/2017 3:18 PM EDT
== END 2017-11-13 15:41 | disposition home or self-care (01) ==
LOC: HRAD 08:46 → HRIP 08:49 → HRAD 15:41
PROVIDERS: ATTEND Hospitalist
DX: K76.9 Liver disease, unspecified (principal); I10 Essential (primary) hypertension
CPT/HCPCS: 47000; 77012; 85014; 85018; 88307; 99152; 99153; J2250; J3010; J7030